=== PATIENT | female | born 1950 | race Caucasian/White ===

== ENCOUNTER 2016-09-26 07:47 | Outpatient (CLI) | payer MEDICARE, OTHER | END 2016-09-26 23:59 | DX: R79.82 Elevated C-reactive protein (CRP) (principal); E78.5 Hyperlipidemia, unspecified; N18.3 Chronic kidney disease, stage 3 (moderate); E66.01 Morbid (severe) obesity due to excess calories; R53.83 Other fatigue; I12.9 Hypertensive chronic kidney disease with stage 1 through stage 4 chronic kidney disease, or unspecified chronic kidney disease ==

== ENCOUNTER 2017-01-16 08:00 | Outpatient (CLI) | payer MEDICARE, OTHER ==
[2017-01-16 18:52] LABS: BILIRUBIN,URINE NEGATIVE (NEGATIVE); PH,URINE 5.5 PH (5.0-7.5)
[2017-01-16 18:54] LABS: UA CHARGE (STRIP ONLY) YES
[2017-01-16 19:03] LABS: BASOPHILS # (AUTO) 0.1 10^3/uL (0.0-0.1); BASOPHILS % (AUTO) 0.8 %; EOSINOPHILS # (AUTO) 0.4 10^3/uL (0.0-0.7); EOSINOPHILS % (AUTO) 4.9 %; HCT - HEMATOCRIT 32.2 % (37.0-47.0); HGB - HEMOGLOBIN 10.2 g/dL (12.0-16.0); LYMPHOCYTES # (AUTO) 2.8 10^3/uL (1.5-3.5); LYMPHOCYTES % (AUTO) 38.4 %; MEAN CORPUSCULAR HEMOGLOBIN 27.1 pg (27.0-31.0); MEAN CORPUSCULAR HGB CONC 31.6 g/dL (32.0-36.0); MEAN CORPUSCULAR VOLUME 85.9 fL (81.0-99.0); MEAN PLATELET VOLUME 10.1 fL (7.9-10.8); MONOCYTES # (AUTO) 0.6 10^3/uL (0.0-1.0); MONOCYTES % (AUTO) 8.9 %; NEUTROPHILS # (AUTO) 3.4 10^3/uL (1.5-6.6); RED BLOOD COUNT 3.75 10^6/uL (4.20-5.40); RED CELL DISTRIBUTION WIDTH 15.1 % (12.0-15.0); UNCORRECTED WHITE BLOOD COUNT 7.2 x10^3/uL; WHITE BLOOD COUNT 7.2 x10^3/uL (4.8-10.8)
[2017-01-16 19:34] LABS: FERRITIN 18.8 ng/mL (11.0-306.8)
[2017-01-16 19:50] LABS: HEMOGLOBIN A1C 0.47 g/dL
[2017-01-16 21:12] LABS: ALBUMIN/GLOBULIN RATIO 0.9 (1.0-2.2); BILIRUBIN,TOTAL 0.3 mg/dL (0.2-1.0); CALCIUM 9.3 mg/dL (8.5-10.3); CREATININE 1.8 mg/dL (0.4-1.0); MAGNESIUM 1.8 mg/dL (1.7-2.8); PHOSPHORUS 3.7 mg/dL (2.5-4.6); POTASSIUM 4.2 mmol/L (3.5-5.0); TOTAL PROTEIN 7.4 g/dL (6.7-8.2); URIC ACID 7.3 mg/dL (2.6-7.2)
[2017-01-20 19:01] LABS: ANA SCREEN POSITIVE (NEGATIVE)
[2017-01-20 20:26] LABS: ALPHA 1 GLOBULIN 0.4 g/dL (0.2-0.3); ALPHA 2 GLOBULIN 0.9 g/dL (0.5-0.9); BETA 1 GLOBULIN 0.6 g/dL (0.4-0.6); BETA 2 GLOBULIN 0.4 g/dL (0.2-0.5); GAMMA GLOBULIN 1.2 g/dL (0.8-1.7)
[2017-01-21 00:01] LABS: TEST RESULT REPORT (())
[2017-01-21 00:28] LABS: TEST RESULT REPORT (())
[2017-01-21 12:41] LABS: ANA TITER 1:40 titer (())
[2017-01-21 19:07] LABS: TEST RESULT REPORT (())
== END 2017-01-16 08:01 | disposition home or self-care (01) ==
LOC: LAB.WCP 08:00
PROVIDERS: ATTEND Specialist
DX: N18.3 Chronic kidney disease, stage 3 (moderate) (principal); E78.2 Mixed hyperlipidemia; R80.9 Proteinuria, unspecified; N17.9 Acute kidney failure, unspecified; N25.0 Renal osteodystrophy; D63.1 Anemia in chronic kidney disease; E11.9 Type 2 diabetes mellitus without complications; E87.5 Hyperkalemia
CPT/HCPCS: 36415; 80053; 81001; 81003; 81599; 82043; 82306; 82570; 82728; 83036; 83540; 83735; 83970; 84100; 84155; 84156; 84165; 84166; 84466; 84550; 85025; 85651; 86021; 86038; 86039; 86140; 86334; 86430

== ENCOUNTER 2017-02-13 11:18 | Outpatient (CLI) | payer MEDICARE, OTHER | END 2017-02-13 11:19 | disposition home or self-care (01) | LOC: DI 11:18 | PROVIDERS: ATTEND Family Medicine | DX: R06.02 Shortness of breath (principal); M13.0 Polyarthritis, unspecified; R79.82 Elevated C-reactive protein (CRP); I11.9 Hypertensive heart disease without heart failure | CPT/HCPCS: 93306 ==

== ENCOUNTER 2017-03-31 13:12 | Outpatient (CLI) | payer MEDICARE, OTHER ==
[2017-03-31] MEDS ORDERED: BARIUM SULFATE 148 GM POWDER PO ONE (15:22)
[2017-03-31] MEDS ORDERED: BARIUM SULFATE 135 ML BOTTLE PO ONE (15:24)
[2017-03-31] MEDS ORDERED: SIMETHICONE/SOD BICARB/CIT AC 1 EACH PACKET PO ONE (15:24)
--- NOTE | 2017-03-31 18:23 | XRAY Report ---
UPPER GI SERIES: 03/31/2017 No comparison. INDICATION: Shortness of breath, polyarthritis, idiopathic hypertension, and dysphagia. TECHNIQUE - FINDINGS: Shooting Gallery Operator view demonstrates cholecystectomy clips. No bowel obstruction. Thick and thin barium were administered orally. Crystal effervescence was used for esophageal and st omach evaluation. No evidence of mass or mucosal abnormality. No strictures or diverticula. Esophageal motility appears normal. No hiatal hernia or gastroesophageal reflux was seen during the exam. IMPRESSION: ESSENTIALLY NEGATIVE UPPER GI. JOB #: [id number] EXT JOB #:[id number]
== END 2017-03-31 13:13 | disposition home or self-care (01) ==
LOC: DI 13:12
PROVIDERS: ATTEND Family Medicine
DX: R13.10 Dysphagia, unspecified (principal); Z90.49 Acquired absence of other specified parts of digestive tract
CPT/HCPCS: 74247; A9270

== ENCOUNTER 2017-05-01 08:00 | Outpatient (CLI) | payer MEDICARE, OTHER ==
[2017-05-01 18:14] LABS: BASOPHILS # (AUTO) 0.1 10^3/uL (0.0-0.1); BASOPHILS % (AUTO) 0.9 %; BILIRUBIN,URINE NEGATIVE (NEGATIVE); EOSINOPHILS # (AUTO) 0.2 10^3/uL (0.0-0.7); EOSINOPHILS % (AUTO) 3.1 %; HCT - HEMATOCRIT 36.8 % (37.0-47.0); HGB - HEMOGLOBIN 11.9 g/dL (12.0-16.0); LYMPHOCYTES # (AUTO) 2.7 10^3/uL (1.5-3.5); LYMPHOCYTES % (AUTO) 39.1 %; MEAN CORPUSCULAR HEMOGLOBIN 29.7 pg (27.0-31.0); MEAN CORPUSCULAR HGB CONC 32.5 g/dL (32.0-36.0); MEAN CORPUSCULAR VOLUME 91.3 fL (81.0-99.0); MEAN PLATELET VOLUME 10.5 fL (7.9-10.8); MONOCYTES # (AUTO) 0.6 10^3/uL (0.0-1.0); MONOCYTES % (AUTO) 8.7 %; NEUTROPHILS # (AUTO) 3.3 10^3/uL (1.5-6.6); NEUTROPHILS % (AUTO) 48.2 %; RED BLOOD COUNT 4.03 10^6/uL (4.20-5.40); RED CELL DISTRIBUTION WIDTH 16.4 % (12.0-15.0); UNCORRECTED WHITE BLOOD COUNT 6.8 x10^3/uL; WHITE BLOOD COUNT 6.8 x10^3/uL (4.8-10.8)
[2017-05-01 18:21] LABS: UA CHARGE (STRIP ONLY) YES; UR CULTURE IF IND NOT INDICATED
[2017-05-01 18:47] LABS: FERRITIN 103.8 ng/mL (11.0-306.8)
[2017-05-01 18:51] LABS: FOLATE 6.66 ng/mL (5.90 - >24.8)
[2017-05-01 18:52] LABS: ALBUMIN/GLOBULIN RATIO 0.9 (1.0-2.2); BILIRUBIN,TOTAL 0.6 mg/dL (0.2-1.0); CALCIUM 9.4 mg/dL (8.5-10.3); CREATININE 1.8 mg/dL (0.4-1.0); PHOSPHORUS 3.2 mg/dL (2.5-4.6); POTASSIUM 4.2 mmol/L (3.5-5.0); TOTAL PROTEIN 7.4 g/dL (6.7-8.2)
== END 2017-05-01 08:01 | disposition home or self-care (01) ==
LOC: LAB.WCP 08:00
PROVIDERS: ATTEND Specialist
DX: N18.3 Chronic kidney disease, stage 3 (moderate) (principal); R30.9 Painful micturition, unspecified; D63.1 Anemia in chronic kidney disease; E78.2 Mixed hyperlipidemia; N25.0 Renal osteodystrophy; R80.9 Proteinuria, unspecified
CPT/HCPCS: 36415; 80053; 81001; 81003; 82043; 82306; 82607; 82728; 82746; 83540; 84100; 84466; 85025; 85651; 87086

== ENCOUNTER 2017-12-01 09:45 | Outpatient (CLI) | payer MEDICARE, OTHER ==
[2017-12-01 12:41] LABS: BASOPHILS % (AUTO) 0.5 %; EOSINOPHILS # (AUTO) 0.4 10^3/uL (0.0-0.7); EOSINOPHILS % (AUTO) 4.4 %; HGB - HEMOGLOBIN 11.2 g/dL (12.0-16.0); LYMPHOCYTES # (AUTO) 3.2 10^3/uL (1.5-3.5); MEAN CORPUSCULAR HGB CONC 32.6 g/dL (32.0-36.0); MEAN CORPUSCULAR VOLUME 92.1 fL (81.0-99.0); MEAN PLATELET VOLUME 10.2 fL (7.9-10.8); MONOCYTES # (AUTO) 0.7 10^3/uL (0.0-1.0); MONOCYTES % (AUTO) 8.9 %; NEUTROPHILS # (AUTO) 3.7 10^3/uL (1.5-6.6); NEUTROPHILS % (AUTO) 46.2 %; PLT - PLATELET COUNT 208 10^3/uL (130-450); RED BLOOD COUNT 3.75 10^6/uL (4.20-5.40); RED CELL DISTRIBUTION WIDTH 13.3 % (12.0-15.0)
[2017-12-01 12:50] LABS: BILIRUBIN,URINE NEGATIVE (NEGATIVE); GLUCOSE, URINE (UA) NEGATIVE (NEGATIVE); KETONES,URINE (UA) NEGATIVE (NEGATIVE); LEUKOCYTE ESTERASE, URINE NEGATIVE (NEGATIVE); NITRITE,URINE NEGATIVE (NEGATIVE); OCCULT BLOOD,URINE NEGATIVE (NEGATIVE); PROTEIN,URINE NEGATIVE (NEGATIVE); UROBILINOGEN,URINE 0.2 (NORMAL) E.U./dL (NORMAL)
[2017-12-01 12:54] LABS: CLARITY,URINE CLEAR (CLEAR)
[2017-12-01 13:04] LABS: BACTERIA,URINE Rare /HPF (None Seen); RBC,URINE None Seen /HPF (0-5); SQUAMOUS EPITHELIAL CELL,UR FEW Squamous (<= Few)
[2017-12-01 13:07] LABS: % IRON SATURATION 17 % (20-50); ALBUMIN 3.2 g/dL (3.2-5.5); ALBUMIN/GLOBULIN RATIO 0.8 (1.0-2.2); ALKALINE PHOSPHATASE 90 IU/L (42-121); ALT ALANINE AMINOTRANSFERASE 18 IU/L (10-60); AST ASPARTATE AMINOTRANSFERASE 23 IU/L (10-42); BILIRUBIN,TOTAL 0.4 mg/dL (0.2-1.0); BUN - BLOOD UREA NITROGEN 40 mg/dL (6-20); CALCIUM 9.5 mg/dL (8.5-10.3); CARBON DIOXIDE - CO2 24 mmol/L (21-32); CHLORIDE 100 mmol/L (101-111); CHOLESTEROL 174 mg/dL; CREATININE 2.3 mg/dL (0.4-1.0); GFR - MDRD 21 (>89); GLUCOSE 134 mg/dL (70-100); HDL CHOLESTEROL 44 mg/dL; IRON 56 ug/dL (28-170); LDL CHOLESTEROL,CALCULATED 97 mg/dL; LDL/HDL RATIO 2.2 (<4.4); MAGNESIUM 1.9 mg/dL (1.7-2.8); PHOSPHORUS 3.1 mg/dL (2.5-4.6); SODIUM 134 mmol/L (135-145); TOTAL IRON BINDING CAPACITY 326 ug/dL (250-450); TOTAL PROTEIN 7.3 g/dL (6.7-8.2); TRANSFERRIN 233 mg/dL (192-382); VLDL CHOLESTEROL 33 mg/dL
[2017-12-01 13:24] LABS: FERRITIN 74.6 ng/mL (11.0-306.8)
[2017-12-01 13:25] LABS: CREATININE,URINE 106.5 mg/dL; MICROALBUMIN,URINE 1.7 mg/dL (0-300.0)
[2017-12-01 13:31] LABS: HEMOGLOBIN A1C 0.51 g/dL
== END 2017-12-01 09:46 | disposition home or self-care (01) ==
LOC: LAB.WCP 09:45
PROVIDERS: ATTEND Specialist
DX: N18.3 Chronic kidney disease, stage 3 (moderate) (principal); R73.9 Hyperglycemia, unspecified; D63.1 Anemia in chronic kidney disease; E78.2 Mixed hyperlipidemia; N25.0 Renal osteodystrophy; E55.9 Vitamin D deficiency, unspecified
CPT/HCPCS: 36415; 80053; 80061; 81001; 82043; 82306; 82570; 82728; 83036; 83540; 83721; 83735; 83970; 84100; 84466; 85025; 87086

== ENCOUNTER 2018-01-12 08:12 | Outpatient (CLI) | payer MEDICARE, OTHER ==
--- NOTE | 2018-01-12 14:50 | Ultrasound Report ---
Procedure Date: 01/12/2018 Accession Number: [id number] / [id number] Procedure: US - Retroperitoneal CPT Code: FULL RESULT: EXAM: Retroperitoneal DATE: 01/12/2018 10:24 AM CLINICAL HISTORY: CKD, HYPERTENSIVE CKD COMPARISON: Renal ultrasound 02/25/2010. TECHNIQUE: Real-time scanning was performed with static images obtained. FINDINGS: The study is limited by the patient's body habitus and limited acoustic windows. Right Kidney: 9.8 cm. Parenchymal blood flow is preserved by color Doppler. No hydronephrosis or obvious masses detected. Left Kidney: 11.7 cm. The parenchymal flow is preserved by color Doppler.. No hydronephrosis or obvious masses detected. Bladder: Bilateral jets seen. The prevoid bladder volume was 137 cc. The postvoid bladder volume was 35 cc. IMPRESSION: Limited study with no hydronephrosis. RADIA
--- NOTE | 2018-01-13 09:51 | Ultrasound Report ---
Procedure Date: 01/12/2018 Accession Number: [id number] / [id number] Procedure: US - Arterial Visceral Complete CPT Code: FULL RESULT: EXAM: RENAL ARTERY DOPPLER ULTRASOUND EXAM DATE: 01/12/2018 10:22 AM. CLINICAL HISTORY: Chronic kidney disease. Hypertension. COMPARISON: None. TECHNIQUE: Real-time sonographic vascular imaging was performed by the customer care associate through the renal arterial system with a linear transducer utilizing color-flow, Doppler flow, and spectral analysis. Multiple ambulatory services representative static images were saved for review. FINDINGS: Examination is technically limited by patient body habitus. The right renal artery origin and proximal portion could not be visualized. The kidneys are normal in size and echotexture. There is no hydronephrosis. No stones or contour-deforming masses are identified. Overall, there is slight elevation of the resistive indices in the segmental arteries which may represent changes related to chronic medical renal disease. There is no significant elevation of the peak systolic velocities or ratios in the visualized renal arteries to suggest hemodynamically significant stenosis. The renal veins are patent. Right Kidney: 9.8 x 4.6 x 4.4 cm. Echotexture: Within normal limits. Right Segmental Artery: Upper pole: PSV 14.4 cm/sec, RI 0.69. Mid pole: PSV 18.8 cm/sec, RI 0.85. Lower pole: PSV 10.6 cm/sec, RI 0.76. Right Renal Artery: Mid: PSV 92.5 cm/sec, RA/AO 1.14. Distal: PSV 159.5 cm/sec, RA/AO 1.97. Aorta PSV: 81.1 cm/sec. RRV Patent: Yes. Left Kidney: 11.7 x 6.0 x 4.5 cm. Echotexture: Within normal limits. Left Segmental Artery: Upper pole: PSV 14.2 cm/sec, RI 0.73. Mid pole: PSV 15.3 cm/sec, RI 0.80. Lower pole: PSV 22.5 cm/sec, RI 0.80. Left Renal Artery: Origin: PSV 110.3 cm/sec, RA/AO 1.36. Proximal: PSV 129.8 cm/sec, RA/AO 1.60. Mid: PSV 115.7 cm/sec, RA/AO 1.42. Distal: PSV 129.8 cm/sec, RA/AO 1.60. LRV Patent: Yes. IMPRESSION: 1. Normal size kidneys with no hydronephrosis. Elevated resistive indices in the segmental arteries could represent changes related to chronic medical renal disease. 2. No renal artery stenosis is identified. Of note, the origin and proximal portion of the right renal artery is obscured by overlying bowel gas and could not be evaluated. CRITERIA FOR CLASSIFICATION OF RENAL ARTERY (RA) DISEASE BY DUPLEX SCANNING: RA Diameter Reduction/ RA PSV/ RAR: Normal, < 180 cm/sec, < 3.5 < 60%, >= 180 cm/sec, < 3.5 >= 60%, >= 180 cm/sec, >= 3.5 Total Occlusion: Undetectable; Not applicable RADIA
== END 2018-01-12 08:13 | disposition home or self-care (01) ==
LOC: DI 08:12
PROVIDERS: ATTEND Specialist
DX: I12.9 Hypertensive chronic kidney disease with stage 1 through stage 4 chronic kidney disease, or unspecified chronic kidney disease (principal)
CPT/HCPCS: 76770; 93975

== ENCOUNTER 2018-02-09 11:17 | Outpatient (CLI) | payer MEDICARE, OTHER ==
[2018-02-09 19:04] LABS: BASOPHILS % (AUTO) 0.3 %; EOSINOPHILS # (AUTO) 0.3 10^3/uL (0.0-0.7); EOSINOPHILS % (AUTO) 3.9 %; HGB - HEMOGLOBIN 11.6 g/dL (12.0-16.0); LYMPHOCYTES # (AUTO) 3.4 10^3/uL (1.5-3.5); LYMPHOCYTES % (AUTO) 43.9 %; MEAN CORPUSCULAR HEMOGLOBIN 29.9 pg (27.0-31.0); MEAN CORPUSCULAR HGB CONC 32.8 g/dL (32.0-36.0); MEAN CORPUSCULAR VOLUME 91.3 fL (81.0-99.0); MEAN PLATELET VOLUME 10.3 fL (7.9-10.8); MONOCYTES # (AUTO) 0.7 10^3/uL (0.0-1.0); MONOCYTES % (AUTO) 8.5 %; NEUTROPHILS # (AUTO) 3.4 10^3/uL (1.5-6.6); NEUTROPHILS % (AUTO) 43.4 %; PLT - PLATELET COUNT 194 10^3/uL (130-450); RED BLOOD COUNT 3.86 10^6/uL (4.20-5.40); RED CELL DISTRIBUTION WIDTH 14.4 % (12.0-15.0); WHITE BLOOD COUNT 7.9 x10^3/uL (4.8-10.8)
[2018-02-09 19:26] LABS: ALBUMIN 3.5 g/dL (3.2-5.5); ALBUMIN/GLOBULIN RATIO 0.9 (1.0-2.2); BILIRUBIN,TOTAL 0.3 mg/dL (0.2-1.0); CALCIUM 9.6 mg/dL (8.5-10.3); CREATININE 2.2 mg/dL (0.4-1.0); TOTAL PROTEIN 7.4 g/dL (6.7-8.2)
== END 2018-02-09 11:18 | disposition home or self-care (01) ==
LOC: LAB.WCP 11:17
PROVIDERS: ATTEND Specialist
DX: N18.4 Chronic kidney disease, stage 4 (severe) (principal); N25.0 Renal osteodystrophy; D63.1 Anemia in chronic kidney disease; E78.2 Mixed hyperlipidemia
CPT/HCPCS: 36415; 80053; 85025

== ENCOUNTER 2018-04-07 11:30 | Outpatient (CLI) | payer MEDICARE, OTHER ==
[2018-04-07 19:16] LABS: BILIRUBIN,URINE NEGATIVE (NEGATIVE); GLUCOSE, URINE (UA) NEGATIVE (NEGATIVE); KETONES,URINE (UA) NEGATIVE (NEGATIVE); LEUKOCYTE ESTERASE, URINE NEGATIVE (NEGATIVE); NITRITE,URINE NEGATIVE (NEGATIVE); OCCULT BLOOD,URINE NEGATIVE (NEGATIVE); PROTEIN,URINE NEGATIVE (NEGATIVE); UROBILINOGEN,URINE 0.2 (NORMAL) E.U./dL (NORMAL)
[2018-04-07 19:17] LABS: CLARITY,URINE CLEAR (CLEAR)
[2018-04-07 19:18] LABS: BASOPHILS # (AUTO) 0.1 10^3/uL (0.0-0.1); BASOPHILS % (AUTO) 0.8 %; EOSINOPHILS # (AUTO) 0.3 10^3/uL (0.0-0.7); EOSINOPHILS % (AUTO) 3.9 %; LYMPHOCYTES # (AUTO) 2.9 10^3/uL (1.5-3.5); LYMPHOCYTES % (AUTO) 39.3 %; MEAN CORPUSCULAR HEMOGLOBIN 29.8 pg (27.0-31.0); MEAN CORPUSCULAR HGB CONC 32.4 g/dL (32.0-36.0); MEAN CORPUSCULAR VOLUME 91.9 fL (81.0-99.0); MEAN PLATELET VOLUME 10.4 fL (7.9-10.8); MONOCYTES # (AUTO) 0.6 10^3/uL (0.0-1.0); MONOCYTES % (AUTO) 7.5 %; NEUTROPHILS # (AUTO) 3.6 10^3/uL (1.5-6.6); NEUTROPHILS % (AUTO) 48.5 %; PLT - PLATELET COUNT 196 10^3/uL (130-450); RED BLOOD COUNT 3.69 10^6/uL (4.20-5.40); RED CELL DISTRIBUTION WIDTH 14.3 % (12.0-15.0); WHITE BLOOD COUNT 7.4 x10^3/uL (4.8-10.8)
[2018-04-07 19:28] LABS: ALBUMIN 3.4 g/dL (3.2-5.5); ALBUMIN/GLOBULIN RATIO 0.9 (1.0-2.2); BILIRUBIN,TOTAL 0.5 mg/dL (0.2-1.0); CALCIUM 9.3 mg/dL (8.5-10.3); CREATININE 2.1 mg/dL (0.4-1.0); TOTAL PROTEIN 7.1 g/dL (6.7-8.2)
[2018-04-07 19:36] LABS: CREATININE,URINE 54.4 mg/dL
== END 2018-04-07 23:59 | disposition home or self-care (01) ==
LOC: LAB.WCP 11:30
PROVIDERS: ATTEND Specialist
DX: N18.4 Chronic kidney disease, stage 4 (severe) (principal); D63.1 Anemia in chronic kidney disease; E78.2 Mixed hyperlipidemia; I12.9 Hypertensive chronic kidney disease with stage 1 through stage 4 chronic kidney disease, or unspecified chronic kidney disease; N25.0 Renal osteodystrophy
CPT/HCPCS: 36415; 80053; 81001; 81003; 82306; 82570; 83970; 84156; 85025

== ENCOUNTER 2018-06-22 08:00 | Outpatient (CLI) | payer MEDICARE, OTHER ==
[2018-06-22 13:53] LABS: BASOPHILS % (AUTO) 0.4 %; EOSINOPHILS # (AUTO) 0.6 10^3/uL (0.0-0.7); EOSINOPHILS % (AUTO) 6.3 %; HGB - HEMOGLOBIN 10.8 g/dL (12.0-16.0); LYMPHOCYTES # (AUTO) 3.6 10^3/uL (1.5-3.5); LYMPHOCYTES % (AUTO) 39.7 %; MEAN CORPUSCULAR HEMOGLOBIN 29.9 pg (27.0-31.0); MEAN CORPUSCULAR HGB CONC 32.9 g/dL (32.0-36.0); MEAN CORPUSCULAR VOLUME 90.9 fL (81.0-99.0); MEAN PLATELET VOLUME 10.2 fL (7.9-10.8); MONOCYTES # (AUTO) 0.7 10^3/uL (0.0-1.0); MONOCYTES % (AUTO) 8.3 %; NEUTROPHILS # (AUTO) 4.1 10^3/uL (1.5-6.6); NEUTROPHILS % (AUTO) 45.3 %; PLT - PLATELET COUNT 215 10^3/uL (130-450); RED BLOOD COUNT 3.62 10^6/uL (4.20-5.40); RED CELL DISTRIBUTION WIDTH 13.5 % (12.0-15.0)
[2018-06-22 13:59] LABS: ALBUMIN 3.3 g/dL (3.2-5.5); ALBUMIN/GLOBULIN RATIO 0.8 (1.0-2.2); BILIRUBIN,TOTAL 0.3 mg/dL (0.2-1.0); CALCIUM 9.6 mg/dL (8.5-10.3); CREATININE 2.4 mg/dL (0.4-1.0); TOTAL PROTEIN 7.2 g/dL (6.7-8.2)
== END 2018-06-22 23:59 | disposition home or self-care (01) ==
LOC: LAB.WCP 08:00
PROVIDERS: ATTEND Specialist
DX: N18.4 Chronic kidney disease, stage 4 (severe) (principal); N25.0 Renal osteodystrophy; D63.1 Anemia in chronic kidney disease; E78.2 Mixed hyperlipidemia
CPT/HCPCS: 36415; 80053; 85025

== ENCOUNTER 2018-08-20 08:00 | Outpatient (CLI) | payer MEDICARE, OTHER ==
[2018-08-20 19:34] LABS: BILIRUBIN,URINE NEGATIVE (NEGATIVE); GLUCOSE, URINE (UA) NEGATIVE (NEGATIVE); KETONES,URINE (UA) NEGATIVE (NEGATIVE); LEUKOCYTE ESTERASE, URINE NEGATIVE (NEGATIVE); NITRITE,URINE NEGATIVE (NEGATIVE); OCCULT BLOOD,URINE NEGATIVE (NEGATIVE); PROTEIN,URINE NEGATIVE (NEGATIVE); UROBILINOGEN,URINE 0.2 (NORMAL) E.U./dL (NORMAL)
[2018-08-20 19:36] LABS: CLARITY,URINE CLEAR (CLEAR)
[2018-08-20 19:49] LABS: BASOPHILS # (AUTO) 0.1 10^3/uL (0.0-0.1); BASOPHILS % (AUTO) 0.6 %; EOSINOPHILS # (AUTO) 0.3 10^3/uL (0.0-0.7); HGB - HEMOGLOBIN 10.5 g/dL (12.0-16.0); LYMPHOCYTES % (AUTO) 32.9 %; MEAN CORPUSCULAR HEMOGLOBIN 29.2 pg (27.0-31.0); MEAN CORPUSCULAR HGB CONC 31.7 g/dL (32.0-36.0); MEAN PLATELET VOLUME 10.5 fL (7.9-10.8); MONOCYTES # (AUTO) 0.7 10^3/uL (0.0-1.0); MONOCYTES % (AUTO) 7.2 %; NEUTROPHILS # (AUTO) 5.2 10^3/uL (1.5-6.6); NEUTROPHILS % (AUTO) 56.3 %; PLT - PLATELET COUNT 202 10^3/uL (130-450); RED BLOOD COUNT 3.61 10^6/uL (4.20-5.40); RED CELL DISTRIBUTION WIDTH 13.7 % (12.0-15.0); WHITE BLOOD COUNT 9.2 x10^3/uL (4.8-10.8)
[2018-08-20 20:00] LABS: HB2 TOTAL 11.5 g/dL; HEMOGLOBIN A1C 0.53 g/dL; HEMOGLOBIN A1C % 6.4 % (4.6-6.2)
[2018-08-20 20:14] LABS: CREATININE,URINE 116.6 mg/dL; MICROALBUMIN,URINE 2.7 mg/dL (0-300.0); PROTEIN/CREATININE RATIO,URINE 0.2 (<=0.2)
[2018-08-20 20:38] LABS: FERRITIN 72.3 ng/mL (11.0-306.8)
[2018-08-20 20:47] LABS: % IRON SATURATION 10 % (20-50); ALBUMIN 3.5 g/dL (3.2-5.5); ALBUMIN/GLOBULIN RATIO 0.9 (1.0-2.2); ALKALINE PHOSPHATASE 93 IU/L (42-121); ALT ALANINE AMINOTRANSFERASE 15 IU/L (10-60); AST ASPARTATE AMINOTRANSFERASE 20 IU/L (10-42); BILIRUBIN,TOTAL 0.5 mg/dL (0.2-1.0); BUN - BLOOD UREA NITROGEN 49 mg/dL (6-20); CALCIUM 9.7 mg/dL (8.5-10.3); CARBON DIOXIDE - CO2 23 mmol/L (21-32); CHLORIDE 104 mmol/L (101-111); CHOL/HDL RATIO 3.8 (<4.4); CHOLESTEROL 199 mg/dL; CREATININE 2.5 mg/dL (0.4-1.0); GFR - MDRD 19 (>89); GLUCOSE 115 mg/dL (70-100); HDL CHOLESTEROL 52 mg/dL; IRON 36 ug/dL (28-170); LDL CHOLESTEROL,CALCULATED 114 mg/dL; LDL/HDL RATIO 2.2 (<4.4); SODIUM 136 mmol/L (135-145); TOTAL IRON BINDING CAPACITY 358 ug/dL (250-450); TOTAL PROTEIN 7.2 g/dL (6.7-8.2); TRANSFERRIN 256 mg/dL (192-382); VLDL CHOLESTEROL 33 mg/dL
== END 2018-08-20 23:59 ==
LOC: LAB.WCP 08:00
PROVIDERS: ATTEND Specialist
DX: I12.9 Hypertensive chronic kidney disease with stage 1 through stage 4 chronic kidney disease, or unspecified chronic kidney disease (principal); N18.4 Chronic kidney disease, stage 4 (severe); E11.22 Type 2 diabetes mellitus with diabetic chronic kidney disease; E11.65 Type 2 diabetes mellitus with hyperglycemia; D63.1 Anemia in chronic kidney disease; E78.2 Mixed hyperlipidemia; R80.9 Proteinuria, unspecified; E55.9 Vitamin D deficiency, unspecified
CPT/HCPCS: 36415; 80053; 80061; 81001; 81003; 82043; 82570; 82728; 83036; 83540; 83721; 83970; 84100; 84156; 84466; 85025; 87086

== ENCOUNTER 2018-10-19 10:47 | Outpatient (CLI) | payer MEDICARE, OTHER ==
[2018-10-19 18:50] LABS: BASOPHILS % (AUTO) 0.6 %; EOSINOPHILS # (AUTO) 0.2 10^3/uL (0.0-0.7); HGB - HEMOGLOBIN 10.5 g/dL (12.0-16.0); LYMPHOCYTES # (AUTO) 2.9 10^3/uL (1.5-3.5); LYMPHOCYTES % (AUTO) 38.3 %; MEAN CORPUSCULAR HEMOGLOBIN 29.4 pg (27.0-31.0); MEAN CORPUSCULAR VOLUME 91.7 fL (81.0-99.0); MEAN PLATELET VOLUME 9.9 fL (7.9-10.8); MONOCYTES # (AUTO) 0.6 10^3/uL (0.0-1.0); MONOCYTES % (AUTO) 7.5 %; NEUTROPHILS # (AUTO) 3.8 10^3/uL (1.5-6.6); NEUTROPHILS % (AUTO) 50.6 %; PLT - PLATELET COUNT 220 10^3/uL (130-450); RED BLOOD COUNT 3.59 10^6/uL (4.20-5.40); RED CELL DISTRIBUTION WIDTH 14.3 % (12.0-15.0); WHITE BLOOD COUNT 7.5 x10^3/uL (4.8-10.8)
[2018-10-19 18:58] LABS: BILIRUBIN,URINE NEGATIVE (NEGATIVE); GLUCOSE, URINE (UA) NEGATIVE (NEGATIVE); KETONES,URINE (UA) NEGATIVE (NEGATIVE); LEUKOCYTE ESTERASE, URINE NEGATIVE (NEGATIVE); NITRITE,URINE NEGATIVE (NEGATIVE); OCCULT BLOOD,URINE NEGATIVE (NEGATIVE); PH,URINE 5.5 PH (5.0-7.5); PROTEIN,URINE NEGATIVE (NEGATIVE); UROBILINOGEN,URINE 0.2 (NORMAL) E.U./dL (NORMAL)
[2018-10-19 19:02] LABS: CLARITY,URINE CLEAR (CLEAR)
[2018-10-19 19:12] LABS: HEMOGLOBIN A1C 0.46 g/dL
[2018-10-19 19:23] LABS: BACTERIA,URINE Few /HPF (None Seen); MUCUS,URINE Few Strands; RBC,URINE None Seen /HPF (0-5); SQUAMOUS EPITHELIAL CELL,UR MANY Squamous (<= Few)
[2018-10-19 19:38] LABS: % IRON SATURATION 18 % (20-50); ALBUMIN 3.6 g/dL (3.2-5.5); ALBUMIN/GLOBULIN RATIO 1.1 (1.0-2.2); ALKALINE PHOSPHATASE 82 IU/L (42-121); ALT ALANINE AMINOTRANSFERASE 18 IU/L (10-60); AST ASPARTATE AMINOTRANSFERASE 21 IU/L (10-42); BILIRUBIN,TOTAL 0.4 mg/dL (0.2-1.0); BUN - BLOOD UREA NITROGEN 40 mg/dL (6-20); CALCIUM 9.5 mg/dL (8.5-10.3); CARBON DIOXIDE - CO2 22 mmol/L (21-32); CHLORIDE 108 mmol/L (101-111); CHOL/HDL RATIO 4.6 (<4.4); CHOLESTEROL 206 mg/dL; CREATININE 2.4 mg/dL (0.4-1.0); CREATININE,URINE 111.3 mg/dL; GFR - MDRD 20 (>89); GLUCOSE 108 mg/dL (70-100); HDL CHOLESTEROL 45 mg/dL; IRON 55 ug/dL (28-170); LDL CHOLESTEROL,CALCULATED 128 mg/dL; LDL/HDL RATIO 2.8 (<4.4); PHOSPHORUS 4.1 mg/dL (2.5-4.6); SODIUM 139 mmol/L (135-145); TOTAL IRON BINDING CAPACITY 309 ug/dL (250-450); TRANSFERRIN 221 mg/dL (192-382); VLDL CHOLESTEROL 33 mg/dL
== END 2018-10-19 10:48 | disposition home or self-care (01) ==
LOC: LAB.WCP 10:47
PROVIDERS: ATTEND Specialist
DX: E11.22 Type 2 diabetes mellitus with diabetic chronic kidney disease (principal); I12.9 Hypertensive chronic kidney disease with stage 1 through stage 4 chronic kidney disease, or unspecified chronic kidney disease; N18.4 Chronic kidney disease, stage 4 (severe); D63.1 Anemia in chronic kidney disease; R80.9 Proteinuria, unspecified; E11.65 Type 2 diabetes mellitus with hyperglycemia; E78.2 Mixed hyperlipidemia; N25.0 Renal osteodystrophy; E55.9 Vitamin D deficiency, unspecified
CPT/HCPCS: 36415; 80053; 80061; 81001; 82043; 82306; 82570; 82728; 83036; 83540; 83721; 83970; 84100; 84466; 85025; 87086

== ENCOUNTER 2019-01-11 08:00 | Outpatient (CLI) | payer MEDICARE, OTHER ==
[2019-01-11 19:17] LABS: BASOPHILS % (AUTO) 0.5 %; EOSINOPHILS # (AUTO) 0.3 10^3/uL (0.0-0.7); EOSINOPHILS % (AUTO) 3.2 %; HGB - HEMOGLOBIN 10.5 g/dL (12.0-16.0); LYMPHOCYTES # (AUTO) 3.2 10^3/uL (1.5-3.5); LYMPHOCYTES % (AUTO) 36.7 %; MEAN CORPUSCULAR HEMOGLOBIN 29.5 pg (27.0-31.0); MEAN CORPUSCULAR HGB CONC 30.3 g/dL (32.0-36.0); MEAN CORPUSCULAR VOLUME 97.2 fL (81.0-99.0); MEAN PLATELET VOLUME 12.2 fL (7.9-10.8); MONOCYTES # (AUTO) 0.7 10^3/uL (0.0-1.0); MONOCYTES % (AUTO) 7.8 %; NEUTROPHILS # (AUTO) 4.5 10^3/uL (1.5-6.6); NEUTROPHILS % (AUTO) 51.5 %; PLT - PLATELET COUNT 250 10^3/uL (130-450); RED BLOOD COUNT 3.56 10^6/uL (4.20-5.40); RED CELL DISTRIBUTION WIDTH 13.6 % (12.0-15.0); WHITE BLOOD COUNT 8.7 x10^3/uL (4.8-10.8)
[2019-01-11 19:36] LABS: ALBUMIN 3.7 g/dL (3.2-5.5); ALBUMIN/GLOBULIN RATIO 0.9 (1.0-2.2); BILIRUBIN,TOTAL 0.4 mg/dL (0.2-1.0); CREATININE 2.5 mg/dL (0.4-1.0); PHOSPHORUS 4.5 mg/dL (2.5-4.6); TOTAL PROTEIN 7.7 g/dL (6.7-8.2)
[2019-01-11 19:47] LABS: FERRITIN 37.9 ng/mL (11.0-306.8)
== END 2019-01-11 23:59 | disposition home or self-care (01) ==
LOC: LAB.WCP 08:00
PROVIDERS: ATTEND Internal Medicine
DX: N18.4 Chronic kidney disease, stage 4 (severe) (principal)
CPT/HCPCS: 36415; 80053; 82728; 83540; 83970; 84100; 84466; 85025

== ENCOUNTER 2019-07-27 10:07 | Outpatient (CLI) | payer MEDICARE, OTHER ==
[2019-07-27 12:21] LABS: BASOPHILS % (AUTO) 0.5 %; EOSINOPHILS # (AUTO) 0.3 10^3/uL (0.0-0.7); EOSINOPHILS % (AUTO) 4.2 %; HGB - HEMOGLOBIN 10.1 g/dL (12.0-16.0); LYMPHOCYTES # (AUTO) 3.6 10^3/uL (1.5-3.5); LYMPHOCYTES % (AUTO) 45.9 %; MEAN CORPUSCULAR HEMOGLOBIN 28.4 pg (27.0-31.0); MEAN CORPUSCULAR HGB CONC 29.3 g/dL (32.0-36.0); MEAN CORPUSCULAR VOLUME 96.9 fL (81.0-99.0); MEAN PLATELET VOLUME 12.1 fL (7.9-10.8); MONOCYTES # (AUTO) 0.6 10^3/uL (0.0-1.0); MONOCYTES % (AUTO) 7.5 %; NEUTROPHILS # (AUTO) 3.3 10^3/uL (1.5-6.6); NEUTROPHILS % (AUTO) 41.5 %; PLT - PLATELET COUNT 240 10^3/uL (130-450); RED BLOOD COUNT 3.56 10^6/uL (4.20-5.40); RED CELL DISTRIBUTION WIDTH 13.4 % (12.0-15.0); WHITE BLOOD COUNT 7.9 x10^3/uL (4.8-10.8)
[2019-07-27 12:43] LABS: CALCIUM 9.6 mg/dL (8.5-10.3); CREATININE 2.9 mg/dL (0.4-1.0)
== END 2019-07-27 23:59 | disposition home or self-care (01) ==
LOC: LAB.WCP 10:07
PROVIDERS: ATTEND Internal Medicine
DX: N18.4 Chronic kidney disease, stage 4 (severe) (principal)
CPT/HCPCS: 36415; 80048; 85025

== ENCOUNTER 2019-09-23 11:16 | Outpatient (CLI) | payer MEDICARE, OTHER ==
[2019-09-23 17:12] LABS: BASOPHILS % (AUTO) 0.5 %; EOSINOPHILS # (AUTO) 0.3 10^3/uL (0.0-0.7); EOSINOPHILS % (AUTO) 3.7 %; HGB - HEMOGLOBIN 10.5 g/dL (12.0-16.0); LYMPHOCYTES # (AUTO) 3.1 10^3/uL (1.5-3.5); MEAN CORPUSCULAR HEMOGLOBIN 28.3 pg (27.0-31.0); MEAN CORPUSCULAR HGB CONC 29.3 g/dL (32.0-36.0); MEAN CORPUSCULAR VOLUME 96.5 fL (81.0-99.0); MONOCYTES # (AUTO) 0.7 10^3/uL (0.0-1.0); NEUTROPHILS # (AUTO) 3.9 10^3/uL (1.5-6.6); NEUTROPHILS % (AUTO) 48.3 %; PLT - PLATELET COUNT 235 10^3/uL (130-450); RED BLOOD COUNT 3.71 10^6/uL (4.20-5.40); RED CELL DISTRIBUTION WIDTH 13.6 % (12.0-15.0); WHITE BLOOD COUNT 8.1 x10^3/uL (4.8-10.8)
[2019-09-23 17:48] LABS: ALBUMIN 3.6 g/dL (3.2-5.5); ALBUMIN/GLOBULIN RATIO 0.9 (1.0-2.2); BILIRUBIN,TOTAL 0.3 mg/dL (0.2-1.0); CALCIUM 9.8 mg/dL (8.5-10.3); CREATININE 3.1 mg/dL (0.4-1.0); PHOSPHORUS 4.1 mg/dL (2.5-4.6); TOTAL PROTEIN 7.5 g/dL (6.7-8.2)
== END 2019-09-23 23:59 | disposition home or self-care (01) ==
LOC: LAB.WCP 11:16
PROVIDERS: ATTEND Internal Medicine
DX: N18.4 Chronic kidney disease, stage 4 (severe) (principal)
CPT/HCPCS: 36415; 80053; 82306; 82728; 83540; 83970; 84100; 84466; 85025

== ENCOUNTER 2019-10-26 08:00 | Outpatient (CLI) | payer MEDICARE, OTHER ==
[2019-10-26 14:07] LABS: CALCIUM 9.7 mg/dL (8.5-10.3); CREATININE 2.9 mg/dL (0.4-1.0)
== END 2019-10-26 23:59 | disposition home or self-care (01) ==
LOC: LAB.WCP 08:00
PROVIDERS: ATTEND Internal Medicine
DX: N18.4 Chronic kidney disease, stage 4 (severe) (principal)
CPT/HCPCS: 36415; 80048

== ENCOUNTER 2019-12-12 11:51 | Outpatient (CLI) | payer MEDICARE, OTHER ==
[2019-12-12 17:53] LABS: BASOPHILS # (AUTO) 0.1 10^3/uL (0.0-0.1); BASOPHILS % (AUTO) 0.6 %; EOSINOPHILS # (AUTO) 0.3 10^3/uL (0.0-0.7); EOSINOPHILS % (AUTO) 3.3 %; HGB - HEMOGLOBIN 10.5 g/dL (12.0-16.0); LYMPHOCYTES # (AUTO) 3.6 10^3/uL (1.5-3.5); LYMPHOCYTES % (AUTO) 42.5 %; MEAN CORPUSCULAR HEMOGLOBIN 29.2 pg (27.0-31.0); MEAN CORPUSCULAR HGB CONC 30.3 g/dL (32.0-36.0); MEAN CORPUSCULAR VOLUME 96.7 fL (81.0-99.0); MEAN PLATELET VOLUME 12.4 fL (7.9-10.8); MONOCYTES # (AUTO) 0.6 10^3/uL (0.0-1.0); MONOCYTES % (AUTO) 7.5 %; NEUTROPHILS # (AUTO) 3.9 10^3/uL (1.5-6.6); NEUTROPHILS % (AUTO) 45.9 %; PLT - PLATELET COUNT 239 10^3/uL (130-450); RED BLOOD COUNT 3.59 10^6/uL (4.20-5.40); RED CELL DISTRIBUTION WIDTH 13.1 % (12.0-15.0); WHITE BLOOD COUNT 8.6 x10^3/uL (4.8-10.8)
[2019-12-12 18:08] LABS: ALBUMIN 3.6 g/dL (3.2-5.5); CALCIUM 9.6 mg/dL (8.5-10.3); PHOSPHORUS 4.2 mg/dL (2.5-4.6)
== END 2019-12-12 23:59 | disposition home or self-care (01) ==
LOC: LAB.WCP 11:51
PROVIDERS: ATTEND Internal Medicine
DX: N18.4 Chronic kidney disease, stage 4 (severe) (principal)
CPT/HCPCS: 36415; 80069; 85025

== ENCOUNTER → 2020-01-12 | Outpatient (CLI) | payer MEDICARE, OTHER ==
[2020-01-12 18:44] LABS: BASOPHILS % (AUTO) 0.5 %; EOSINOPHILS # (AUTO) 0.2 10^3/uL (0.0-0.7); EOSINOPHILS % (AUTO) 2.5 %; HGB - HEMOGLOBIN 10.6 g/dL (12.0-16.0); LYMPHOCYTES # (AUTO) 3.8 10^3/uL (1.5-3.5); LYMPHOCYTES % (AUTO) 43.6 %; MEAN CORPUSCULAR HEMOGLOBIN 29.1 pg (27.0-31.0); MEAN CORPUSCULAR HGB CONC 29.5 g/dL (32.0-36.0); MEAN CORPUSCULAR VOLUME 98.6 fL (81.0-99.0); MEAN PLATELET VOLUME 12.1 fL (7.9-10.8); MONOCYTES # (AUTO) 0.7 10^3/uL (0.0-1.0); MONOCYTES % (AUTO) 7.7 %; NEUTROPHILS % (AUTO) 45.5 %; PLT - PLATELET COUNT 225 10^3/uL (130-450); RED BLOOD COUNT 3.64 10^6/uL (4.20-5.40); RED CELL DISTRIBUTION WIDTH 13.4 % (12.0-15.0); WHITE BLOOD COUNT 8.7 x10^3/uL (4.8-10.8)
[2020-01-12 19:14] LABS: ALBUMIN 3.7 g/dL (3.2-5.5); CALCIUM 9.6 mg/dL (8.5-10.3); PHOSPHORUS 4.5 mg/dL (2.5-4.6)
== END ==
LOC: LAB.WCP 08:00
PROVIDERS: ATTEND Internal Medicine
DX: N18.4 Chronic kidney disease, stage 4 (severe) (principal)
CPT/HCPCS: 36415; 80069; 85025

== ENCOUNTER → 2020-02-14 | Outpatient (CLI) | payer MEDICARE, OTHER ==
[2020-02-14 18:08] LABS: BASOPHILS # (AUTO) 0.1 10^3/uL (0.0-0.1); BASOPHILS % (AUTO) 0.7 %; EOSINOPHILS # (AUTO) 0.2 10^3/uL (0.0-0.7); EOSINOPHILS % (AUTO) 2.1 %; HGB - HEMOGLOBIN 9.9 g/dL (12.0-16.0); LYMPHOCYTES # (AUTO) 3.6 10^3/uL (1.5-3.5); LYMPHOCYTES % (AUTO) 43.9 %; MEAN CORPUSCULAR HEMOGLOBIN 29.9 pg (27.0-31.0); MEAN CORPUSCULAR HGB CONC 30.9 g/dL (32.0-36.0); MEAN CORPUSCULAR VOLUME 96.7 fL (81.0-99.0); MONOCYTES # (AUTO) 0.6 10^3/uL (0.0-1.0); MONOCYTES % (AUTO) 6.9 %; NEUTROPHILS # (AUTO) 3.8 10^3/uL (1.5-6.6); NEUTROPHILS % (AUTO) 46.2 %; PLT - PLATELET COUNT 241 10^3/uL (130-450); RED BLOOD COUNT 3.31 10^6/uL (4.20-5.40); RED CELL DISTRIBUTION WIDTH 13.2 % (12.0-15.0); WHITE BLOOD COUNT 8.2 x10^3/uL (4.8-10.8)
[2020-02-14 18:33] LABS: ALBUMIN 3.6 g/dL (3.2-5.5); CALCIUM 10.1 mg/dL (8.5-10.3); CREATININE 3.2 mg/dL (0.4-1.0)
== END ==
LOC: LAB.WCP 14:12
PROVIDERS: ATTEND Internal Medicine
DX: N18.4 Chronic kidney disease, stage 4 (severe) (principal)
CPT/HCPCS: 36415; 80069; 85025

== ENCOUNTER → 2020-03-14 | Outpatient (CLI) | payer MEDICARE, OTHER ==
[2020-03-14 18:29] LABS: BASOPHILS # (AUTO) 0.1 10^3/uL (0.0-0.1); BASOPHILS % (AUTO) 0.5 %; EOSINOPHILS # (AUTO) 0.4 10^3/uL (0.0-0.7); HGB - HEMOGLOBIN 10.3 g/dL (12.0-16.0); LYMPHOCYTES # (AUTO) 3.3 10^3/uL (1.5-3.5); MEAN CORPUSCULAR HEMOGLOBIN 29.8 pg (27.0-31.0); MEAN CORPUSCULAR HGB CONC 30.4 g/dL (32.0-36.0); MEAN PLATELET VOLUME 12.2 fL (7.9-10.8); MONOCYTES # (AUTO) 0.7 10^3/uL (0.0-1.0); MONOCYTES % (AUTO) 7.6 %; NEUTROPHILS # (AUTO) 4.9 10^3/uL (1.5-6.6); NEUTROPHILS % (AUTO) 52.5 %; PLT - PLATELET COUNT 232 10^3/uL (130-450); RED BLOOD COUNT 3.46 10^6/uL (4.20-5.40); RED CELL DISTRIBUTION WIDTH 13.3 % (12.0-15.0); WHITE BLOOD COUNT 9.4 x10^3/uL (4.8-10.8)
[2020-03-14 18:47] LABS: ALBUMIN 3.6 g/dL (3.2-5.5); CALCIUM 9.5 mg/dL (8.5-10.3); CREATININE 3.2 mg/dL (0.4-1.0); PHOSPHORUS 3.5 mg/dL (2.5-4.6)
== END ==
LOC: LAB.WCP 14:07
PROVIDERS: ATTEND Internal Medicine
DX: N18.4 Chronic kidney disease, stage 4 (severe) (principal)
CPT/HCPCS: 36415; 80069; 85025

== ENCOUNTER 2020-04-13 11:28 | Outpatient (CLI) | payer MEDICARE, OTHER ==
[2020-04-13 18:38] LABS: BASOPHILS # (AUTO) 0.1 10^3/uL (0.0-0.1); BASOPHILS % (AUTO) 0.7 %; EOSINOPHILS # (AUTO) 0.3 10^3/uL (0.0-0.7); EOSINOPHILS % (AUTO) 3.9 %; HGB - HEMOGLOBIN 10.3 g/dL (12.0-16.0); LYMPHOCYTES # (AUTO) 2.7 10^3/uL (1.5-3.5); MEAN CORPUSCULAR HEMOGLOBIN 29.7 pg (27.0-31.0); MEAN CORPUSCULAR HGB CONC 29.8 g/dL (32.0-36.0); MEAN CORPUSCULAR VOLUME 99.7 fL (81.0-99.0); MEAN PLATELET VOLUME 12.4 fL (7.9-10.8); MONOCYTES # (AUTO) 0.6 10^3/uL (0.0-1.0); MONOCYTES % (AUTO) 8.3 %; NEUTROPHILS # (AUTO) 3.6 10^3/uL (1.5-6.6); NEUTROPHILS % (AUTO) 49.8 %; PLT - PLATELET COUNT 214 10^3/uL (130-450); RED BLOOD COUNT 3.47 10^6/uL (4.20-5.40); RED CELL DISTRIBUTION WIDTH 13.3 % (12.0-15.0); WHITE BLOOD COUNT 7.2 x10^3/uL (4.8-10.8)
[2020-04-13 19:02] LABS: ALBUMIN 3.4 g/dL (3.2-5.5); CALCIUM 9.6 mg/dL (8.5-10.3); PHOSPHORUS 4.3 mg/dL (2.5-4.6)
== END 2020-04-13 23:59 | disposition home or self-care (01) ==
LOC: LAB.WCP 11:28
PROVIDERS: ATTEND Internal Medicine
DX: N18.4 Chronic kidney disease, stage 4 (severe) (principal)
CPT/HCPCS: 36415; 80069; 85025

== ENCOUNTER 2020-05-15 08:00 | Outpatient (CLI) | payer MEDICARE, OTHER ==
[2020-05-15 18:35] LABS: BASOPHILS # (AUTO) 0.1 10^3/uL (0.0-0.1); BASOPHILS % (AUTO) 0.8 %; EOSINOPHILS # (AUTO) 0.3 10^3/uL (0.0-0.7); EOSINOPHILS % (AUTO) 3.3 %; HGB - HEMOGLOBIN 10.4 g/dL (12.0-16.0); LYMPHOCYTES # (AUTO) 2.7 10^3/uL (1.5-3.5); MEAN CORPUSCULAR HEMOGLOBIN 30.2 pg (27.0-31.0); MEAN CORPUSCULAR HGB CONC 30.2 g/dL (32.0-36.0); MONOCYTES # (AUTO) 0.7 10^3/uL (0.0-1.0); MONOCYTES % (AUTO) 8.2 %; NEUTROPHILS % (AUTO) 56.5 %; PLT - PLATELET COUNT 256 10^3/uL (130-450); RED BLOOD COUNT 3.44 10^6/uL (4.20-5.40); WHITE BLOOD COUNT 8.8 x10^3/uL (4.8-10.8)
[2020-05-15 18:40] LABS: ALBUMIN 3.4 g/dL (3.2-5.5); CREATININE 3.1 mg/dL (0.4-1.0); PHOSPHORUS 3.3 mg/dL (2.5-4.6)
== END 2020-05-15 23:59 | disposition home or self-care (01) ==
LOC: LAB.WCP 08:00
PROVIDERS: ATTEND Internal Medicine
DX: N18.4 Chronic kidney disease, stage 4 (severe) (principal)
CPT/HCPCS: 36415; 80069; 85025

== ENCOUNTER 2020-06-15 08:00 | Outpatient (CLI) | payer MEDICARE, OTHER ==
[2020-06-15 18:18] LABS: BASOPHILS # (AUTO) 0.1 10^3/uL (0.0-0.1); BASOPHILS % (AUTO) 0.6 %; EOSINOPHILS # (AUTO) 0.3 10^3/uL (0.0-0.7); EOSINOPHILS % (AUTO) 2.7 %; HGB - HEMOGLOBIN 10.9 g/dL (12.0-16.0); LYMPHOCYTES % (AUTO) 41.7 %; MEAN CORPUSCULAR HEMOGLOBIN 30.1 pg (27.0-31.0); MEAN CORPUSCULAR HGB CONC 30.4 g/dL (32.0-36.0); MEAN CORPUSCULAR VOLUME 98.9 fL (81.0-99.0); MEAN PLATELET VOLUME 12.1 fL (7.9-10.8); MONOCYTES # (AUTO) 0.8 10^3/uL (0.0-1.0); MONOCYTES % (AUTO) 8.4 %; NEUTROPHILS # (AUTO) 4.5 10^3/uL (1.5-6.6); NEUTROPHILS % (AUTO) 46.3 %; PLT - PLATELET COUNT 248 10^3/uL (130-450); RED BLOOD COUNT 3.62 10^6/uL (4.20-5.40); RED CELL DISTRIBUTION WIDTH 13.2 % (12.0-15.0); WHITE BLOOD COUNT 9.6 x10^3/uL (4.8-10.8)
[2020-06-15 18:43] LABS: CHOL/HDL RATIO 4.4 (<4.4); CHOLESTEROL 236 mg/dL; HDL CHOLESTEROL 54 mg/dL; LDL CHOLESTEROL,CALCULATED 148 mg/dL; LDL/HDL RATIO 2.7 (<4.4); VLDL CHOLESTEROL 34 mg/dL
[2020-06-15 18:50] LABS: ALBUMIN 3.8 g/dL (3.2-5.5); CALCIUM 10.2 mg/dL (8.5-10.3); CREATININE 3.6 mg/dL (0.4-1.0); PHOSPHORUS 4.2 mg/dL (2.5-4.6)
== END 2020-06-15 23:59 | disposition home or self-care (01) ==
LOC: LAB.WCP 08:00
PROVIDERS: ATTEND Family Medicine
DX: E66.01 Morbid (severe) obesity due to excess calories (principal); E78.5 Hyperlipidemia, unspecified; R53.83 Other fatigue; N18.4 Chronic kidney disease, stage 4 (severe)
CPT/HCPCS: 36415; 80061; 80069; 83721; 84443; 85025

== ENCOUNTER 2020-07-20 08:00 | Outpatient (CLI) | payer MEDICARE, OTHER ==
[2020-07-20 19:17] LABS: BASOPHILS # (AUTO) 0.1 10^3/uL (0.0-0.1); BASOPHILS % (AUTO) 0.9 %; EOSINOPHILS # (AUTO) 0.2 10^3/uL (0.0-0.7); EOSINOPHILS % (AUTO) 2.1 %; HGB - HEMOGLOBIN 10.5 g/dL (12.0-16.0); LYMPHOCYTES # (AUTO) 2.4 10^3/uL (1.5-3.5); LYMPHOCYTES % (AUTO) 32.1 %; MEAN CORPUSCULAR HEMOGLOBIN 29.9 pg (27.0-31.0); MEAN CORPUSCULAR VOLUME 99.7 fL (81.0-99.0); MEAN PLATELET VOLUME 12.2 fL (7.9-10.8); MONOCYTES # (AUTO) 0.6 10^3/uL (0.0-1.0); MONOCYTES % (AUTO) 8.5 %; NEUTROPHILS # (AUTO) 4.2 10^3/uL (1.5-6.6); NEUTROPHILS % (AUTO) 56.1 %; PLT - PLATELET COUNT 251 10^3/uL (130-450); RED BLOOD COUNT 3.51 10^6/uL (4.20-5.40); RED CELL DISTRIBUTION WIDTH 13.2 % (12.0-15.0); WHITE BLOOD COUNT 7.5 x10^3/uL (4.8-10.8)
[2020-07-20 19:43] LABS: ALBUMIN/GLOBULIN RATIO 1.1 (1.0-2.2); BILIRUBIN,TOTAL 0.4 mg/dL (0.2-1.0); CALCIUM 10.1 mg/dL (8.5-10.3); CREATININE 3.4 mg/dL (0.4-1.0); TOTAL PROTEIN 7.8 g/dL (6.7-8.2)
[2020-07-20 20:09] LABS: HEMOGLOBIN A1c% 6.1 % (4.27-6.07)
[2020-07-23 13:36] LABS: HEPATITIS B SURFACE ANTIGEN NON-REACTIVE (NON-REACTIVE); HEPATITIS C ANTIBODY NON-REACTIVE (NON-REACTIVE)
== END 2020-07-20 23:59 | disposition home or self-care (01) ==
LOC: LAB.WCP 08:00
PROVIDERS: ATTEND Internal Medicine
DX: N18.6 End stage renal disease (principal); R73.03 Prediabetes
CPT/HCPCS: 36415; 80053; 82728; 83036; 83540; 84466; 85025; 86317; 86704; 86803; 87340

== ENCOUNTER 2020-08-20 15:04 | Outpatient (CLI) | payer MEDICARE, OTHER ==
[2020-08-20 18:44] LABS: ALBUMIN 3.5 g/dL (3.2-5.5); CALCIUM 9.8 mg/dL (8.5-10.3); CREATININE 3.4 mg/dL (0.4-1.0); PHOSPHORUS 4.4 mg/dL (2.5-4.6); POTASSIUM 4.5 mmol/L (3.5-5.0)
== END 2020-08-20 23:59 | disposition home or self-care (01) ==
LOC: LAB.WCP 15:04
PROVIDERS: ATTEND Family Medicine
DX: N18.6 End stage renal disease (principal)
CPT/HCPCS: 36415; 80053; 80061; 80069; 82728; 83036; 83540; 83721; 84443; 84466; 85025; 86140

== ENCOUNTER 2020-09-27 08:00 | Outpatient (CLI) | payer MEDICARE, OTHER ==
[2020-09-27 18:12] LABS: BASOPHILS # (AUTO) 0.1 10^3/uL (0.0-0.1); BASOPHILS % (AUTO) 0.8 %; EOSINOPHILS # (AUTO) 0.2 10^3/uL (0.0-0.7); EOSINOPHILS % (AUTO) 3.4 %; HCT - HEMATOCRIT 33.3 % (37.0-47.0); HGB - HEMOGLOBIN 9.8 g/dL (12.0-16.0); LYMPHOCYTES # (AUTO) 2.6 10^3/uL (1.5-3.5); LYMPHOCYTES % (AUTO) 36.6 %; MEAN CORPUSCULAR HEMOGLOBIN 29.1 pg (27.0-31.0); MEAN CORPUSCULAR HGB CONC 29.4 g/dL (32.0-36.0); MEAN CORPUSCULAR VOLUME 98.8 fL (81.0-99.0); MEAN PLATELET VOLUME 12.3 fL (7.9-10.8); MONOCYTES # (AUTO) 0.5 10^3/uL (0.0-1.0); MONOCYTES % (AUTO) 7.3 %; NEUTROPHILS # (AUTO) 3.7 10^3/uL (1.5-6.6); NEUTROPHILS % (AUTO) 51.5 %; PLT - PLATELET COUNT 215 10^3/uL (130-450); RED BLOOD COUNT 3.37 10^6/uL (4.20-5.40); RED CELL DISTRIBUTION WIDTH 13.2 % (12.0-15.0); WHITE BLOOD COUNT 7.1 x10^3/uL (4.8-10.8)
[2020-09-27 18:35] LABS: ALBUMIN 3.4 g/dL (3.2-5.5); ALBUMIN/GLOBULIN RATIO 0.9 (1.0-2.2); BILIRUBIN,TOTAL 0.5 mg/dL (0.2-1.0); CALCIUM 9.7 mg/dL (8.5-10.3); CREATININE 3.4 mg/dL (0.4-1.0); CRP - C-REACTIVE PROTEIN 1.4 mg/dL (0-1.0); POTASSIUM 4.4 mmol/L (3.5-5.0); TOTAL PROTEIN 7.1 g/dL (6.7-8.2)
[2020-09-27 19:39] LABS: ESTIMATED AVERAGE GLUCOSE 131 mg/dL (70-100); HEMOGLOBIN A1c% 6.2 % (4.27-6.07)
== END 2020-09-27 23:59 | disposition home or self-care (01) ==
LOC: LAB.WCP 08:00
PROVIDERS: ATTEND Family Medicine
DX: N18.4 Chronic kidney disease, stage 4 (severe) (principal); D63.1 Anemia in chronic kidney disease; E66.01 Morbid (severe) obesity due to excess calories; R79.82 Elevated C-reactive protein (CRP)
CPT/HCPCS: 36415; 80053; 82728; 83036; 83540; 84100; 84466; 85025; 86140

== ENCOUNTER 2020-11-12 08:00 | Outpatient (CLI) | payer MEDICARE, OTHER ==
[2020-11-12 18:20] LABS: BASOPHILS # (AUTO) 0.1 10^3/uL (0.0-0.1); BASOPHILS % (AUTO) 0.7 %; EOSINOPHILS # (AUTO) 0.3 10^3/uL (0.0-0.7); EOSINOPHILS % (AUTO) 3.1 %; HCT - HEMATOCRIT 34.4 % (37.0-47.0); LYMPHOCYTES # (AUTO) 3.5 10^3/uL (1.5-3.5); MEAN CORPUSCULAR HEMOGLOBIN 29.2 pg (27.0-31.0); MEAN CORPUSCULAR HGB CONC 29.1 g/dL (32.0-36.0); MEAN CORPUSCULAR VOLUME 100.3 fL (81.0-99.0); MEAN PLATELET VOLUME 12.8 fL (7.9-10.8); MONOCYTES # (AUTO) 0.6 10^3/uL (0.0-1.0); MONOCYTES % (AUTO) 7.2 %; NEUTROPHILS # (AUTO) 3.7 10^3/uL (1.5-6.6); NEUTROPHILS % (AUTO) 45.6 %; PLT - PLATELET COUNT 207 10^3/uL (130-450); RED BLOOD COUNT 3.43 10^6/uL (4.20-5.40); RED CELL DISTRIBUTION WIDTH 14.1 % (12.0-15.0); WHITE BLOOD COUNT 8.2 x10^3/uL (4.8-10.8)
[2020-11-12 18:32] LABS: ALBUMIN 3.6 g/dL (3.2-5.5); CALCIUM 9.6 mg/dL (8.5-10.3); CREATININE 3.2 mg/dL (0.4-1.0)
== END 2020-11-12 23:59 | disposition home or self-care (01) ==
LOC: LAB.WCP 08:00
PROVIDERS: ATTEND Internal Medicine Nephrology
DX: N18.4 Chronic kidney disease, stage 4 (severe) (principal)
CPT/HCPCS: 36415; 80069; 85025

== ENCOUNTER 2020-12-24 08:00 | Outpatient (CLI) | payer MEDICARE, OTHER ==
[2020-12-24 18:36] LABS: BASOPHILS # (AUTO) 0.1 10^3/uL (0.0-0.1); BASOPHILS % (AUTO) 0.8 %; EOSINOPHILS # (AUTO) 0.2 10^3/uL (0.0-0.7); EOSINOPHILS % (AUTO) 2.3 %; HCT - HEMATOCRIT 32.7 % (37.0-47.0); HGB - HEMOGLOBIN 10.1 g/dL (12.0-16.0); LYMPHOCYTES # (AUTO) 2.8 10^3/uL (1.5-3.5); LYMPHOCYTES % (AUTO) 35.9 %; MEAN CORPUSCULAR HEMOGLOBIN 30.5 pg (27.0-31.0); MEAN CORPUSCULAR HGB CONC 30.9 g/dL (32.0-36.0); MEAN CORPUSCULAR VOLUME 98.8 fL (81.0-99.0); MEAN PLATELET VOLUME 12.2 fL (7.9-10.8); MONOCYTES # (AUTO) 0.6 10^3/uL (0.0-1.0); MONOCYTES % (AUTO) 7.8 %; NEUTROPHILS # (AUTO) 4.1 10^3/uL (1.5-6.6); NEUTROPHILS % (AUTO) 52.9 %; PLT - PLATELET COUNT 210 10^3/uL (130-450); RED BLOOD COUNT 3.31 10^6/uL (4.20-5.40); RED CELL DISTRIBUTION WIDTH 13.8 % (12.0-15.0); WHITE BLOOD COUNT 7.7 x10^3/uL (4.8-10.8)
[2020-12-24 19:05] LABS: ALBUMIN 3.7 g/dL (3.2-5.5); CALCIUM 9.5 mg/dL (8.5-10.3); CREATININE 3.9 mg/dL (0.4-1.0); PHOSPHORUS 4.3 mg/dL (2.5-4.6); POTASSIUM 4.6 mmol/L (3.5-5.0)
[2020-12-24 19:12] LABS: THYROID STIMULATING HORMONE 2.21 uIU/mL (0.34-5.60)
[2020-12-24 19:24] LABS: FOLATE 8.07 ng/mL (5.90 - >24.8)
== END 2020-12-24 23:59 | disposition home or self-care (01) ==
LOC: LAB.WCP 08:00
PROVIDERS: ATTEND Internal Medicine Nephrology
DX: N18.5 Chronic kidney disease, stage 5 (principal); D63.1 Anemia in chronic kidney disease; R53.83 Other fatigue
CPT/HCPCS: 36415; 80069; 82306; 82607; 82728; 82746; 83540; 83970; 84443; 84466; 85025

== ENCOUNTER 2021-01-23 11:25 | Outpatient (CLI) | payer MEDICARE, OTHER ==
[2021-01-23 17:56] LABS: BASOPHILS % (AUTO) 0.5 %; EOSINOPHILS # (AUTO) 0.2 10^3/uL (0.0-0.7); EOSINOPHILS % (AUTO) 2.5 %; HCT - HEMATOCRIT 31.9 % (37.0-47.0); HGB - HEMOGLOBIN 9.7 g/dL (12.0-16.0); LYMPHOCYTES # (AUTO) 3.2 10^3/uL (1.5-3.5); LYMPHOCYTES % (AUTO) 38.7 %; MEAN CORPUSCULAR HEMOGLOBIN 30.5 pg (27.0-31.0); MEAN CORPUSCULAR HGB CONC 30.4 g/dL (32.0-36.0); MEAN CORPUSCULAR VOLUME 100.3 fL (81.0-99.0); MEAN PLATELET VOLUME 12.3 fL (7.9-10.8); MONOCYTES # (AUTO) 0.6 10^3/uL (0.0-1.0); MONOCYTES % (AUTO) 7.1 %; NEUTROPHILS # (AUTO) 4.1 10^3/uL (1.5-6.6); PLT - PLATELET COUNT 208 10^3/uL (130-450); RED BLOOD COUNT 3.18 10^6/uL (4.20-5.40); RED CELL DISTRIBUTION WIDTH 13.4 % (12.0-15.0); WHITE BLOOD COUNT 8.1 x10^3/uL (4.8-10.8)
[2021-01-23 18:09] LABS: ALBUMIN 3.5 g/dL (3.2-5.5); ALKALINE PHOSPHATASE 99 IU/L (42-121); ALT ALANINE AMINOTRANSFERASE 15 IU/L (10-60); AST ASPARTATE AMINOTRANSFERASE 17 IU/L (10-42); BILIRUBIN,TOTAL 0.5 mg/dL (0.2-1.0); TOTAL PROTEIN 7.2 g/dL (6.7-8.2)
[2021-01-23 19:03] LABS: BILIRUBIN,DIRECT < 0.1 mg/dL (0.1-0.5)
== END 2021-01-23 23:59 | disposition home or self-care (01) ==
LOC: LAB.WCP 11:25
PROVIDERS: ATTEND Internal Medicine Nephrology
DX: N18.4 Chronic kidney disease, stage 4 (severe) (principal)
CPT/HCPCS: 36415; 80076; 85025

== ENCOUNTER 2021-01-29 14:36 | Outpatient (CLI) | payer MEDICARE, OTHER ==
[2021-01-29 18:24] LABS: ALBUMIN 3.6 g/dL (3.2-5.5); CALCIUM 9.5 mg/dL (8.5-10.3); CREATININE 3.8 mg/dL (0.4-1.0); PHOSPHORUS 4.2 mg/dL (2.5-4.6); POTASSIUM 4.7 mmol/L (3.5-5.0)
== END 2021-01-29 23:59 | disposition home or self-care (01) ==
LOC: LAB.WCP 14:36
PROVIDERS: ATTEND Internal Medicine Nephrology
DX: N18.4 Chronic kidney disease, stage 4 (severe) (principal)
CPT/HCPCS: 36415; 80069

== ENCOUNTER 2021-03-05 13:38 | Outpatient (CLI) | payer MEDICARE, OTHER ==
[2021-03-05 18:01] LABS: BASOPHILS # (AUTO) 0.1 10^3/uL (0.0-0.1); BASOPHILS % (AUTO) 0.7 %; EOSINOPHILS # (AUTO) 0.4 10^3/uL (0.0-0.7); EOSINOPHILS % (AUTO) 3.7 %; HGB - HEMOGLOBIN 9.9 g/dL (12.0-16.0); LYMPHOCYTES # (AUTO) 3.7 10^3/uL (1.5-3.5); LYMPHOCYTES % (AUTO) 38.3 %; MEAN CORPUSCULAR HEMOGLOBIN 30.3 pg (27.0-31.0); MEAN CORPUSCULAR VOLUME 100.9 fL (81.0-99.0); MEAN PLATELET VOLUME 11.5 fL (7.9-10.8); MONOCYTES # (AUTO) 0.6 10^3/uL (0.0-1.0); MONOCYTES % (AUTO) 5.7 %; NEUTROPHILS % (AUTO) 51.3 %; PLT - PLATELET COUNT 250 10^3/uL (130-450); RED BLOOD COUNT 3.27 10^6/uL (4.20-5.40); RED CELL DISTRIBUTION WIDTH 12.8 % (12.0-15.0); WHITE BLOOD COUNT 9.8 x10^3/uL (4.8-10.8)
[2021-03-05 18:18] LABS: ALBUMIN 3.6 g/dL (3.2-5.5); CALCIUM 9.5 mg/dL (8.5-10.3); CREATININE 3.7 mg/dL (0.4-1.0); PHOSPHORUS 5.3 mg/dL (2.5-4.6); POTASSIUM 4.8 mmol/L (3.5-5.0)
== END 2021-03-05 23:59 | disposition home or self-care (01) ==
LOC: LAB.WCP 13:38
PROVIDERS: ATTEND Internal Medicine Nephrology
DX: N18.4 Chronic kidney disease, stage 4 (severe) (principal)
CPT/HCPCS: 36415; 80069; 85025

== ENCOUNTER 2021-04-08 12:39 | Outpatient (CLI) | payer MEDICARE, OTHER | END 2021-04-08 12:40 | disposition home or self-care (01) | LOC: DI.N 12:39 | DX: Z53.9 Procedure and treatment not carried out, unspecified reason (principal) ==

== ENCOUNTER 2021-04-08 13:25 | Outpatient (CLI) | payer MEDICARE, OTHER ==
[2021-04-08 18:09] LABS: BASOPHILS # (AUTO) 0.1 10^3/uL (0.0-0.1); BASOPHILS % (AUTO) 0.9 %; EOSINOPHILS # (AUTO) 0.7 10^3/uL (0.0-0.7); EOSINOPHILS % (AUTO) 6.4 %; HGB - HEMOGLOBIN 10.2 g/dL (12.0-16.0); LYMPHOCYTES # (AUTO) 4.1 10^3/uL (1.5-3.5); LYMPHOCYTES % (AUTO) 39.5 %; MEAN CORPUSCULAR HEMOGLOBIN 30.7 pg (27.0-31.0); MEAN CORPUSCULAR VOLUME 102.4 fL (81.0-99.0); MONOCYTES # (AUTO) 0.8 10^3/uL (0.0-1.0); MONOCYTES % (AUTO) 7.3 %; NEUTROPHILS # (AUTO) 4.7 10^3/uL (1.5-6.6); NEUTROPHILS % (AUTO) 45.4 %; PLT - PLATELET COUNT 226 10^3/uL (130-450); RED BLOOD COUNT 3.32 10^6/uL (4.20-5.40); RED CELL DISTRIBUTION WIDTH 12.8 % (12.0-15.0); WHITE BLOOD COUNT 10.3 x10^3/uL (4.8-10.8)
[2021-04-08 18:31] LABS: ALBUMIN 3.8 g/dL (3.2-5.5); CALCIUM 9.9 mg/dL (8.5-10.3); CREATININE 3.8 mg/dL (0.4-1.0); POTASSIUM 5.2 mmol/L (3.5-5.0)
== END 2021-04-08 23:59 | disposition home or self-care (01) ==
LOC: LAB.WCP 13:25
PROVIDERS: ATTEND Internal Medicine Nephrology
DX: N18.4 Chronic kidney disease, stage 4 (severe) (principal)
CPT/HCPCS: 36415; 80069; 85025

== ENCOUNTER 2021-05-14 08:00 | Outpatient (CLI) | payer MEDICARE, OTHER ==
[2021-05-14 22:28] LABS: ALBUMIN 3.6 g/dL (3.2-5.5); CALCIUM 9.7 mg/dL (8.5-10.3); CREATININE 3.3 mg/dL (0.4-1.0); PHOSPHORUS 4.8 mg/dL (2.5-4.6); POTASSIUM 4.9 mmol/L (3.5-5.0)
[2021-05-14 22:32] LABS: FERRITIN 154.2 ng/mL (11.0-306.8)
[2021-05-15 09:26] LABS: BASOPHILS # (AUTO) 0.1 10^3/uL (0.0-0.1); BASOPHILS % (AUTO) 0.7 %; EOSINOPHILS # (AUTO) 0.5 10^3/uL (0.0-0.7); EOSINOPHILS % (AUTO) 6.5 %; HGB - HEMOGLOBIN 9.4 g/dL (12.0-16.0); LYMPHOCYTES # (AUTO) 2.6 10^3/uL (1.5-3.5); LYMPHOCYTES % (AUTO) 31.3 %; MEAN CORPUSCULAR HEMOGLOBIN 29.7 pg (27.0-31.0); MEAN CORPUSCULAR HGB CONC 28.5 g/dL (32.0-36.0); MEAN CORPUSCULAR VOLUME 104.4 fL (81.0-99.0); MONOCYTES # (AUTO) 0.6 10^3/uL (0.0-1.0); NEUTROPHILS # (AUTO) 4.4 10^3/uL (1.5-6.6); NEUTROPHILS % (AUTO) 54.1 %; PLT - PLATELET COUNT 234 10^3/uL (130-450); RED BLOOD COUNT 3.16 10^6/uL (4.20-5.40); RED CELL DISTRIBUTION WIDTH 12.8 % (12.0-15.0); WHITE BLOOD COUNT 8.2 x10^3/uL (4.8-10.8)
== END 2021-05-14 23:59 | disposition home or self-care (01) ==
LOC: LAB.WCP 08:00
PROVIDERS: ATTEND Internal Medicine Nephrology
DX: N18.5 Chronic kidney disease, stage 5 (principal); D63.1 Anemia in chronic kidney disease
CPT/HCPCS: 36415; 80069; 82728; 83540; 83970; 84466; 85025

== ENCOUNTER 2021-05-22 08:51 | Outpatient (CLI) | payer MEDICARE, OTHER ==
--- NOTE | 2021-05-23 13:38 | Mammography Report ---
BILATERAL DIGITAL DIAGNOSTIC MAMMOGRAM 3D/2D: 05/22/2021 CLINICAL: Palpable right breast lump. Comparison is made to exams dated: 10/07/2016 mammogram, 04/20/2013 mammogram - [facility], a nd 07/29/2010 mammogram - [facility]. The tissue of both breasts is predominantly f atty. There are multiple new irregular equal density focal asymmetries with an indistinct margin in the rig ht breast in both the inferior and superior and lateral regions seen on both CC and MLO views. There is extensive new architectural distortion associated with the focal asymmetries. IMPRESSION: INCOMPLETE: NEEDS ADDITIONAL IMAGING EVALUATION The multiple new irregular equal density focal asymmetries in the right breast are indeterminate. An ultrasound will be performed. This exam was interpreted at Station ID: [id number]. NOTE: For mammograms, a report in lay terms will be sent to the patient. Approximately 15% of breast malignancies will not be visualized mammographically. In the management of a palpable breast mass, a negative mammogram must not discourage biopsy of a clinically suspicious lesion. Electronically Signed By: Deangelo Chung M.D. jr/:05/22/2021 11:18:45 ACR BI-RADS Category 0: Incomplete 3340F PARENCHYMAL PATTERN: (F) - The breast(s) demonstrate(s) diffuse fatty replacement. BI-RADS CATEGORY: (0) - 0 Unspecified - other recall n/a LATERALITY: (B)
--- NOTE | 2021-05-23 13:38 | Ultrasound Report ---
LIMITED ULTRASOUND OF RIGHT BREAST AND AXILLA: 05/22/2021 CLINICAL: Palpable right breast lump. Patient returns today to evaluate asymmetries in the right [address]. Comparison is made to exams dated: 05/22/2021 mammogram - [facility], 10/07/2016 [facility] mogram, 04/20/2013 mammogram - [facility], and 07/29/2010 mammogram - [facility]. Color flow and real-time ultrasound of the right breast 6-7 o'clock, 9 o'clock, 11-12 o'clock, and ax illa regions were performed. Ríos scale images of the real-time examination were reviewed. Multiple shadowing, vascular, and solid masses in the right breast. The largest and most suspicious i s at 12:00 approximately 5-7 cm from the nipple and is exexyh-yfgj-vacc with marked spiculated and an gular borders. The other masses are small, less than 1.5 cm, and are located at 6:00, 7:00, and 9:00. IMPRESSION: HIGHLY SUGGESTIVE OF MALIGNANCY Multiple right breast masses highly suspicious for multicentric malignancy. US-guided biopsy of the 1 2:00 and 9:00 masses recommended. This exam was interpreted at Station ID: [id number]. Electronically Signed By: Deangelo Chung M.D. jr/:05/22/2021 11:24:51 Ultrasound BI-RADS: 5 Highly suggestive of malignancy BI-RADS CATEGORY: (5) - 5 None [id number] Immediate follow-up LATERALITY: ()
== END 2021-05-22 08:52 | disposition home or self-care (01) ==
LOC: DI 08:51
PROVIDERS: ATTEND Family Medicine
DX: N63.15 Unspecified lump in the right breast, overlapping quadrants (principal); N63.13 Unspecified lump in the right breast, lower outer quadrant

== ENCOUNTER 2021-05-28 12:51 | Outpatient (CLI) | payer MEDICARE, OTHER ==
[~2021-05-28 12:51] MED LIST: LIDOCAINE 1%-EPI 1:100000 20 ML MDV ONE
--- NOTE | 2021-06-06 13:53 | Ultrasound Report ---
ULTRASOUND GUIDED BIOPSY RIGHT BREAST USING VACUUM DEVICE WITH MARKING DEVICE INSERTED AND POST ULTRA SOUND IMAGIN05/28/2021 CLINICAL: Right breast mass. PATIENT CONSENT: Risks (minor bleeding, infection, vasovagal reaction and repeat procedure), benefits and alternatives were explained to the patient and written informed consent was obtained. Correlation is made to exams dated: 05/22/2021 ultrasound, 05/22/2021 mammogram - [facility], 10/07/2016 mammogram, 04/20/2013 mammogram - [facility], and 07/29/2010 mammogram - [facility]. An ultrasound guided biopsy using real-time ultrasound was performed for the mass located in the righ t breast at 9 o'clock middle depth. This was described on the previous ultrasound report. The skin was prepped in the usual manner. Local anesthetic was administered to the access site. A skin sandra was made in the breast. The abnormality was approached from the lateral aspect. A 12 gauge biopsy n eedle was placed adjacent to the abnormality under ultrasound guidance. Once the needle was document ed to be in the correct location, three specimens were obtained using the [employer] system. A cli p was inserted into the biopsy cavity. A skin closure strip and a sterile dressing were applied to t he access site. Post procedure ultrasound imaging demonstrates the location device at the targeted a lefty. The specimens were sent to the laboratory for pathological analysis. IMPRESSION: ULTRASOUND GUIDED BIOPSY BENIGN Ultrasound guided biopsy of the mass in the right breast at 9 o'clock middle depth was successful wit h no apparent post procedure complications. Pathology indicates benign fibrous mastopathy and fibroc ystic changes (FC). Pathology results are concordant with imaging findings. This exam was interpreted at Station ID: [id number]. Deangelo Chung M.D., jr/yosvany:06/06/2021 12:36:37 BI-RADS CATEGORY: () - Unspecified - other recall n/a LATERALITY: (B)
--- NOTE | 2021-06-06 13:53 | Ultrasound Report ---
ULTRASOUND GUIDED BIOPSY RIGHT BREAST USING VACUUM DEVICE WITH MARKING DEVICE INSERTED AND POST ULTRA SOUND IMAGIN05/28/2021 CLINICAL: Right breast mass. PATIENT CONSENT: Risks (minor bleeding, infection, vasovagal reaction and repeat procedure), benefits and alternatives were explained to the patient and written informed consent was obtained. Correlation is made to exams dated: 05/22/2021 mammogram - [facility], 10/07/2016 [facility] mmogram, 04/20/2013 mammogram - [facility], and 07/29/2010 mammogram - [facility]. An ultrasound guided biopsy using real-time ultrasound was performed for the mass located in the righ t breast at 12 o'clock middle depth. This was described on the previous ultrasound report. The skin was prepped in the usual manner. Local anesthetic was administered to the access site. A skin sandra was made in the breast. The abnormality was approached from the lateral aspect. A 12 gauge biopsy needle was placed adjacent to the abnormality under ultrasound guidance. Once the needle was documen muriel to be in the correct location, three specimens were obtained using the [employer] system. A cl ip was inserted into the biopsy cavity. A skin closure strip and a sterile dressing were applied to the access site. Post procedure ultrasound imaging demonstrates the location device at the targeted area. The specimens were sent to the laboratory for pathological analysis. IMPRESSION: ULTRASOUND GUIDED BIOPSY MALIGNANT Ultrasound guided biopsy of the mass in the right breast at 12 o'clock middle depth was successful wi th no apparent post procedure complications. Pathology indicates malignant invasive lobular carcinom a (IL). Pathology results are concordant with imaging findings. A surgical/oncologic consultation i s recommended. This exam was interpreted at Station ID: [id number]. Deangelo Chung M.D., jr/yosvany:06/06/2021 12:35:53 BI-RADS CATEGORY: () - Unspecified - other recall n/a LATERALITY: (B)
== END 2021-05-28 12:52 | disposition home or self-care (01) ==
LOC: DI 12:51
PROVIDERS: ATTEND Family Medicine
DX: C50.811 Malignant neoplasm of overlapping sites of right female breast (principal); Z17.0 Estrogen receptor positive status [ER+]; N60.11 Diffuse cystic mastopathy of right breast
CPT/HCPCS: 19083; 19084; 88305; 88341; 88342; 88360

== ENCOUNTER 2021-06-14 11:14 | Outpatient (CLI) | payer MEDICARE, OTHER ==
[2021-06-14 18:02] LABS: BASOPHILS # (AUTO) 0.1 10^3/uL (0.0-0.1); BASOPHILS % (AUTO) 0.7 %; EOSINOPHILS # (AUTO) 0.9 10^3/uL (0.0-0.7); EOSINOPHILS % (AUTO) 8.9 %; HCT - HEMATOCRIT 33.8 % (37.0-47.0); HGB - HEMOGLOBIN 9.9 g/dL (12.0-16.0); LYMPHOCYTES # (AUTO) 3.9 10^3/uL (1.5-3.5); LYMPHOCYTES % (AUTO) 38.2 %; MEAN CORPUSCULAR HEMOGLOBIN 29.6 pg (27.0-31.0); MEAN CORPUSCULAR HGB CONC 29.3 g/dL (32.0-36.0); MEAN CORPUSCULAR VOLUME 100.9 fL (81.0-99.0); MONOCYTES # (AUTO) 0.8 10^3/uL (0.0-1.0); MONOCYTES % (AUTO) 7.4 %; NEUTROPHILS # (AUTO) 4.5 10^3/uL (1.5-6.6); NEUTROPHILS % (AUTO) 44.5 %; PLT - PLATELET COUNT 260 10^3/uL (130-450); RED BLOOD COUNT 3.35 10^6/uL (4.20-5.40); RED CELL DISTRIBUTION WIDTH 13.2 % (12.0-15.0); WHITE BLOOD COUNT 10.2 x10^3/uL (4.8-10.8)
[2021-06-14 18:19] LABS: ALBUMIN 3.4 g/dL (3.2-5.5); CALCIUM 9.8 mg/dL (8.5-10.3); CREATININE 3.5 mg/dL (0.4-1.0); PHOSPHORUS 3.7 mg/dL (2.5-4.6); POTASSIUM 4.6 mmol/L (3.5-5.0)
== END 2021-06-14 11:15 | disposition home or self-care (01) ==
LOC: LAB.N 11:14
PROVIDERS: ATTEND Internal Medicine Nephrology
DX: N18.4 Chronic kidney disease, stage 4 (severe) (principal)
CPT/HCPCS: 36415; 80069; 85025

== ENCOUNTER 2021-07-25 12:51 | Outpatient (CLI) | payer MEDICARE, OTHER ==
[2021-07-25 13:04] LABS: BASOPHILS # (AUTO) 0.1 10^3/uL (0.0-0.1); BASOPHILS % (AUTO) 0.5 %; EOSINOPHILS # (AUTO) 0.7 10^3/uL (0.0-0.7); EOSINOPHILS % (AUTO) 6.4 %; HCT - HEMATOCRIT 33.3 % (37.0-47.0); LYMPHOCYTES # (AUTO) 3.6 10^3/uL (1.5-3.5); LYMPHOCYTES % (AUTO) 31.9 %; MEAN CORPUSCULAR HEMOGLOBIN 29.9 pg (27.0-31.0); MEAN CORPUSCULAR VOLUME 99.7 fL (81.0-99.0); MEAN PLATELET VOLUME 11.3 fL (7.9-10.8); MONOCYTES # (AUTO) 0.8 10^3/uL (0.0-1.0); MONOCYTES % (AUTO) 7.1 %; NEUTROPHILS # (AUTO) 6.1 10^3/uL (1.5-6.6); NEUTROPHILS % (AUTO) 53.7 %; PLT - PLATELET COUNT 232 10^3/uL (130-450); RED BLOOD COUNT 3.34 10^6/uL (4.20-5.40); RED CELL DISTRIBUTION WIDTH 13.7 % (12.0-15.0); WHITE BLOOD COUNT 11.3 x10^3/uL (4.8-10.8)
[2021-07-25 13:18] LABS: ALBUMIN 3.6 g/dL (3.2-5.5); CALCIUM 9.6 mg/dL (8.5-10.3); CREATININE 3.4 mg/dL (0.4-1.0); PHOSPHORUS 3.1 mg/dL (2.5-4.6); POTASSIUM 4.4 mmol/L (3.5-5.0)
== END 2021-07-25 12:52 | disposition home or self-care (01) ==
LOC: LAB 12:51
PROVIDERS: ATTEND Internal Medicine Nephrology
DX: N18.4 Chronic kidney disease, stage 4 (severe) (principal)
CPT/HCPCS: 36415; 80069; 85025

== ENCOUNTER 2021-08-23 14:02 | Outpatient (CLI) | payer MEDICARE, OTHER ==
[2021-08-23 18:43] LABS: BASOPHILS # (AUTO) 0.1 10^3/uL (0.0-0.1); BASOPHILS % (AUTO) 0.5 %; EOSINOPHILS # (AUTO) 0.3 10^3/uL (0.0-0.7); EOSINOPHILS % (AUTO) 2.8 %; LYMPHOCYTES # (AUTO) 3.5 10^3/uL (1.5-3.5); LYMPHOCYTES % (AUTO) 30.1 %; MEAN CORPUSCULAR HEMOGLOBIN 30.2 pg (27.0-31.0); MEAN CORPUSCULAR HGB CONC 30.3 g/dL (32.0-36.0); MEAN CORPUSCULAR VOLUME 99.7 fL (81.0-99.0); MEAN PLATELET VOLUME 12.3 fL (7.9-10.8); MONOCYTES # (AUTO) 1.2 10^3/uL (0.0-1.0); MONOCYTES % (AUTO) 10.4 %; NEUTROPHILS # (AUTO) 6.5 10^3/uL (1.5-6.6); NEUTROPHILS % (AUTO) 55.9 %; PLT - PLATELET COUNT 225 10^3/uL (130-450); RED BLOOD COUNT 3.31 10^6/uL (4.20-5.40); RED CELL DISTRIBUTION WIDTH 13.8 % (12.0-15.0); WHITE BLOOD COUNT 11.6 x10^3/uL (4.8-10.8)
[2021-08-23 19:13] LABS: ALBUMIN 3.8 g/dL (3.2-5.5); CALCIUM 9.8 mg/dL (8.5-10.3); CREATININE 3.4 mg/dL (0.4-1.0); PHOSPHORUS 3.3 mg/dL (2.5-4.6); POTASSIUM 4.6 mmol/L (3.5-5.0)
[2021-08-23 19:17] LABS: FERRITIN 122.7 ng/mL (11.0-306.8)
== END 2021-08-23 14:03 | disposition home or self-care (01) ==
LOC: LAB.N 14:02
PROVIDERS: ATTEND Internal Medicine Nephrology
DX: N18.5 Chronic kidney disease, stage 5 (principal); D63.1 Anemia in chronic kidney disease
CPT/HCPCS: 36415; 80069; 82728; 83540; 83970; 84466; 85025

== ENCOUNTER 2021-09-18 11:44 | Outpatient (CLI) | payer MEDICARE, OTHER ==
[2021-09-18 18:27] LABS: BASOPHILS # (AUTO) 0.1 10^3/uL (0.0-0.1); BASOPHILS % (AUTO) 0.5 %; EOSINOPHILS # (AUTO) 0.3 10^3/uL (0.0-0.7); EOSINOPHILS % (AUTO) 3.1 %; HCT - HEMATOCRIT 31.6 % (37.0-47.0); HGB - HEMOGLOBIN 9.5 g/dL (12.0-16.0); LYMPHOCYTES # (AUTO) 3.7 10^3/uL (1.5-3.5); LYMPHOCYTES % (AUTO) 40.3 %; MEAN CORPUSCULAR HEMOGLOBIN 29.8 pg (27.0-31.0); MEAN CORPUSCULAR HGB CONC 30.1 g/dL (32.0-36.0); MEAN CORPUSCULAR VOLUME 99.1 fL (81.0-99.0); MEAN PLATELET VOLUME 12.4 fL (7.9-10.8); MONOCYTES # (AUTO) 0.7 10^3/uL (0.0-1.0); MONOCYTES % (AUTO) 7.5 %; NEUTROPHILS # (AUTO) 4.4 10^3/uL (1.5-6.6); NEUTROPHILS % (AUTO) 48.1 %; PLT - PLATELET COUNT 219 10^3/uL (130-450); RED BLOOD COUNT 3.19 10^6/uL (4.20-5.40); WHITE BLOOD COUNT 9.1 x10^3/uL (4.8-10.8)
[2021-09-18 18:38] LABS: ALBUMIN 3.5 g/dL (3.2-5.5); CALCIUM 9.7 mg/dL (8.5-10.3); CREATININE 3.6 mg/dL (0.4-1.0); PHOSPHORUS 4.4 mg/dL (2.5-4.6); POTASSIUM 5.1 mmol/L (3.5-5.0)
== END 2021-09-18 11:45 | disposition home or self-care (01) ==
LOC: LAB.N 11:44
PROVIDERS: ATTEND Internal Medicine Nephrology
DX: N18.4 Chronic kidney disease, stage 4 (severe) (principal)
CPT/HCPCS: 36415; 80069; 85025

== ENCOUNTER 2021-10-08 11:50 | Outpatient (CLI) | payer MEDICARE, OTHER ==
[2021-10-08 18:34] LABS: ALBUMIN 3.3 g/dL (3.2-5.5); CALCIUM 9.5 mg/dL (8.5-10.3); CREATININE 3.8 mg/dL (0.4-1.0); PHOSPHORUS 4.2 mg/dL (2.5-4.6); POTASSIUM 4.7 mmol/L (3.5-5.0)
== END 2021-10-08 11:51 | disposition home or self-care (01) ==
LOC: LAB.N 11:50
PROVIDERS: ATTEND Internal Medicine Nephrology
DX: N18.4 Chronic kidney disease, stage 4 (severe) (principal)
CPT/HCPCS: 36415; 80069; 85025

== ENCOUNTER 2021-12-10 12:37 | Outpatient (CLI) | payer MEDICARE, OTHER | END 2021-12-10 12:38 | disposition home or self-care (01) | LOC: LAB.N 12:37 | PROVIDERS: ATTEND Internal Medicine Nephrology | DX: Z53.9 Procedure and treatment not carried out, unspecified reason (principal) | CPT/HCPCS: 36415; 80069; 85025 ==

== ENCOUNTER 2021-12-11 16:39 | Outpatient (CLI) | payer MEDICARE, OTHER ==
[2021-12-11 20:28] LABS: BASOPHILS # (AUTO) 0.1 10^3/uL (0.0-0.1); BASOPHILS % (AUTO) 0.7 %; EOSINOPHILS # (AUTO) 0.3 10^3/uL (0.0-0.7); EOSINOPHILS % (AUTO) 4.4 %; HCT - HEMATOCRIT 28.6 % (37.0-47.0); HGB - HEMOGLOBIN 8.6 g/dL (12.0-16.0); LYMPHOCYTES # (AUTO) 2.1 10^3/uL (1.5-3.5); LYMPHOCYTES % (AUTO) 27.7 %; MEAN CORPUSCULAR HGB CONC 30.1 g/dL (32.0-36.0); MEAN CORPUSCULAR VOLUME 99.7 fL (81.0-99.0); MEAN PLATELET VOLUME 12.1 fL (7.9-10.8); MONOCYTES # (AUTO) 0.9 10^3/uL (0.0-1.0); MONOCYTES % (AUTO) 11.4 %; NEUTROPHILS # (AUTO) 4.1 10^3/uL (1.5-6.6); NEUTROPHILS % (AUTO) 55.4 %; PLT - PLATELET COUNT 190 10^3/uL (130-450); RED BLOOD COUNT 2.87 10^6/uL (4.20-5.40); WHITE BLOOD COUNT 7.5 x10^3/uL (4.8-10.8)
[2021-12-11 20:42] LABS: ALBUMIN 3.5 g/dL (3.2-5.5); CALCIUM 9.7 mg/dL (8.5-10.3); CREATININE 3.9 mg/dL (0.4-1.0); PHOSPHORUS 3.6 mg/dL (2.5-4.6); POTASSIUM 5.3 mmol/L (3.5-5.0)
== END 2021-12-11 16:40 | disposition home or self-care (01) ==
LOC: LAB.N 16:39
PROVIDERS: ATTEND Internal Medicine Nephrology
DX: N18.4 Chronic kidney disease, stage 4 (severe) (principal)
CPT/HCPCS: 36415; 80069; 85025

== ENCOUNTER 2022-02-17 14:16 | Outpatient (CLI) | payer MEDICARE, OTHER | END 2022-02-17 14:17 | disposition home or self-care (01) | LOC: LAB.N 14:16 | PROVIDERS: ATTEND Internal Medicine Nephrology | DX: Z53.9 Procedure and treatment not carried out, unspecified reason (principal) ==

== ENCOUNTER 2022-05-03 11:56 | Outpatient (CLI) | payer MEDICARE, OTHER ==
[2022-05-03 18:35] LABS: BASOPHILS # (AUTO) 0.1 10^3/uL (0.0-0.1); BASOPHILS % (AUTO) 0.5 %; EOSINOPHILS # (AUTO) 0.4 10^3/uL (0.0-0.7); HGB - HEMOGLOBIN 9.9 g/dL (12.0-16.0); LYMPHOCYTES # (AUTO) 2.7 10^3/uL (1.5-3.5); LYMPHOCYTES % (AUTO) 27.6 %; MEAN CORPUSCULAR HEMOGLOBIN 31.1 pg (27.0-31.0); MEAN CORPUSCULAR VOLUME 103.8 fL (81.0-99.0); MEAN PLATELET VOLUME 11.7 fL (7.9-10.8); MONOCYTES # (AUTO) 0.8 10^3/uL (0.0-1.0); MONOCYTES % (AUTO) 7.9 %; NEUTROPHILS # (AUTO) 5.7 10^3/uL (1.5-6.6); NEUTROPHILS % (AUTO) 59.3 %; PLT - PLATELET COUNT 235 10^3/uL (130-450); RED BLOOD COUNT 3.18 10^6/uL (4.20-5.40); RED CELL DISTRIBUTION WIDTH 13.1 % (12.0-15.0); WHITE BLOOD COUNT 9.7 x10^3/uL (4.8-10.8)
[2022-05-03 18:53] LABS: ALBUMIN 3.1 g/dL (3.2-5.5); CALCIUM 9.7 mg/dL (8.5-10.3); CREATININE 4.8 mg/dL (0.4-1.0); PHOSPHORUS 4.8 mg/dL (2.5-4.6); POTASSIUM 4.7 mmol/L (3.5-5.0)
== END 2022-05-03 11:57 | disposition home or self-care (01) ==
LOC: LAB.N 11:56
PROVIDERS: ATTEND Internal Medicine Nephrology
DX: N18.4 Chronic kidney disease, stage 4 (severe) (principal)
CPT/HCPCS: 36415; 80069; 85025

== ENCOUNTER 2022-05-23 11:44 | Outpatient (CLI) | payer MEDICARE, OTHER ==
[2022-05-23 18:17] LABS: BASOPHILS # (AUTO) 0.1 10^3/uL (0.0-0.1); BASOPHILS % (AUTO) 0.6 %; EOSINOPHILS # (AUTO) 0.3 10^3/uL (0.0-0.7); EOSINOPHILS % (AUTO) 4.3 %; HGB - HEMOGLOBIN 9.4 g/dL (12.0-16.0); LYMPHOCYTES % (AUTO) 25.5 %; MEAN CORPUSCULAR HEMOGLOBIN 31.3 pg (27.0-31.0); MEAN CORPUSCULAR HGB CONC 30.3 g/dL (32.0-36.0); MEAN CORPUSCULAR VOLUME 103.3 fL (81.0-99.0); MEAN PLATELET VOLUME 11.3 fL (7.9-10.8); MONOCYTES # (AUTO) 0.6 10^3/uL (0.0-1.0); MONOCYTES % (AUTO) 8.1 %; NEUTROPHILS # (AUTO) 4.7 10^3/uL (1.5-6.6); NEUTROPHILS % (AUTO) 60.6 %; PLT - PLATELET COUNT 233 10^3/uL (130-450); RED CELL DISTRIBUTION WIDTH 12.6 % (12.0-15.0); WHITE BLOOD COUNT 7.7 x10^3/uL (4.8-10.8)
[2022-05-23 18:31] LABS: BILIRUBIN,URINE NEGATIVE (NEGATIVE); GLUCOSE, URINE (UA) NEGATIVE (NEGATIVE); KETONES,URINE (UA) NEGATIVE (NEGATIVE); LEUKOCYTE ESTERASE, URINE TRACE (NEGATIVE); NITRITE,URINE NEGATIVE (NEGATIVE); OCCULT BLOOD,URINE TRACE-INTA (NEGATIVE); PROTEIN,URINE TRACE mg/dL (NEGATIVE); UROBILINOGEN,URINE 0.2 (NORMAL) E.U./dL (NORMAL)
[2022-05-23 18:37] LABS: FERRITIN 430.4 ng/mL (11.0-306.8)
[2022-05-23 18:38] LABS: CLARITY,URINE CLEAR (CLEAR)
[2022-05-23 18:55] LABS: ALBUMIN 3.5 g/dL (3.2-5.5); CALCIUM 9.7 mg/dL (8.5-10.3); PHOSPHORUS 4.6 mg/dL (2.5-4.6); POTASSIUM 4.4 mmol/L (3.5-5.0)
[2022-05-23 19:08] LABS: BACTERIA,URINE Few /HPF (None Seen); CASTS, URINE 0-2 Hyaline Casts /LPF; RBC,URINE 0-5 /HPF (0-5); SQUAMOUS EPITHELIAL CELL,UR MANY Squamous (<= Few)
== END 2022-05-23 11:45 | disposition home or self-care (01) ==
LOC: LAB.N 11:44
PROVIDERS: ATTEND Internal Medicine Nephrology
DX: N18.5 Chronic kidney disease, stage 5 (principal); D63.1 Anemia in chronic kidney disease
CPT/HCPCS: 36415; 80069; 81001; 81003; 81599; 82306; 82728; 83540; 83970; 84466; 85025; 87086

== ENCOUNTER 2022-06-25 08:00 | Outpatient (CLI) | payer MEDICARE, OTHER ==
[2022-06-27 04:09] LABS: HBsAG SCREEN Negative (Negative); HCV AB <0.1 s/co ratio (0.0-0.9); HEPATITIS B SURFACE AB QUANT <3.1 mIU/mL (Immunity>9.9)
== END 2022-06-25 23:59 | disposition home or self-care (01) ==
LOC: LAB.N 08:00
PROVIDERS: ATTEND Internal Medicine Nephrology
DX: N18.5 Chronic kidney disease, stage 5 (principal); Z11.59 Encounter for screening for other viral diseases
CPT/HCPCS: 36415; 86317; 86704; 86803; 87340

== ENCOUNTER 2022-07-17 14:49 | Outpatient (CLI) | payer MEDICARE, OTHER ==
[2022-07-17 15:19] LABS: BASOPHILS # (AUTO) 0.1 10^3/uL (0.0-0.1); BASOPHILS % (AUTO) 0.4 %; EOSINOPHILS # (AUTO) 0.2 10^3/uL (0.0-0.7); EOSINOPHILS % (AUTO) 1.6 %; HCT - HEMATOCRIT 29.1 % (37.0-47.0); HGB - HEMOGLOBIN 8.7 g/dL (12.0-16.0); LYMPHOCYTES # (AUTO) 2.1 10^3/uL (1.5-3.5); LYMPHOCYTES % (AUTO) 16.4 %; MEAN CORPUSCULAR HGB CONC 29.9 g/dL (32.0-36.0); MEAN CORPUSCULAR VOLUME 103.6 fL (81.0-99.0); MEAN PLATELET VOLUME 10.3 fL (7.9-10.8); MONOCYTES # (AUTO) 0.8 10^3/uL (0.0-1.0); NEUTROPHILS # (AUTO) 9.4 10^3/uL (1.5-6.6); NEUTROPHILS % (AUTO) 74.6 %; PLT - PLATELET COUNT 249 10^3/uL (130-450); RED BLOOD COUNT 2.81 10^6/uL (4.20-5.40); RED CELL DISTRIBUTION WIDTH 12.9 % (12.0-15.0); WHITE BLOOD COUNT 12.6 x10^3/uL (4.8-10.8)
--- NOTE | 2022-07-17 20:11 | XRAY Report ---
PROCEDURE: Chest 2 View X-Ray INDICATIONS: MUSCLE WEAKNESS TECHNIQUE: 2 views of the chest were acquired. COMPARISON: None FINDINGS: Surgical changes and devices: Multiple surgical clips project over the right chest. Surgical clips pr oject over the right upper quadrant compatible with prior cholecystectomy. Lungs and pleura: No pleural effusions or pneumothorax. Lungs are clear. No cavitary lesions identi fied. Mediastinum: Mediastinal contours are normal. Heart size is normal. Bones and chest wall: No suspicious bony abnormalities. Soft tissues appear unremarkable. IMPRESSION: Chest without acute cardiopulmonary abnormalities or focal airspace disease. Reviewed by: Joaquim Mcpherson MD on 07/17/2022 8:10 PM PST Approved by: Joaqium Mcpherson MD on 07/17/2022 8:10 PM PST Station ID: [id number]
[2022-07-18 05:11] LABS: HEPATITIS B CORE IGM AB Negative (Negative); HEPATITIS B SURFACE AB QUANT <3.1 mIU/mL (Immunity>9.9); HEPATITIS BE ANTIGEN Positive (Negative)
[2022-07-18 07:10] LABS: HCV AB <0.1 s/co ratio (0.0-0.9)
== END 2022-07-17 14:50 | disposition home or self-care (01) ==
LOC: LAB 14:49 → DI 14:50
PROVIDERS: ATTEND Internal Medicine Nephrology
DX: N18.5 Chronic kidney disease, stage 5 (principal); Z11.1 Encounter for screening for respiratory tuberculosis; Z11.59 Encounter for screening for other viral diseases
CPT/HCPCS: 36415; 85025; 86317; 86705; 86803; 87350

== ENCOUNTER 2022-09-22 13:19 | Outpatient (CLI) | payer MEDICARE, OTHER ==
--- NOTE | 2022-09-24 10:04 | Mammography Report ---
UNILATERAL LEFT DIGITAL SCREENING MAMMOGRAM 3D/2D: 09/22/2022 CLINICAL: Routine screening. Personal history of right breast cancer. Comparison is made to exams dated: 07/04/2021 ultrasound biopsy, 07/04/2021 ultrasound biopsy, 07/04/19 mammogram - [facility], 05/28/2021 ultrasound biopsy, 05/28/2021 ultrasound biopsy, an d 05/22/2021 ultrasound - [facility]. There are scattered areas of fibroglandular density in the left breast (category b / 25%-50% glandula r tissue). No significant masses, calcifications, or other findings are seen in the breast. There has been no significant interval change. IMPRESSION: NEGATIVE There is no mammographic evidence of malignancy. A 1 year screening mammogram is recommended. This exam was interpreted at Station ID: [id number]. NOTE: For mammograms, a report in lay terms will be sent to the patient. Approximately 15% of breast malignancies will not be visualized mammographically. In the management of a palpable breast mass, a negative mammogram must not discourage biopsy of a clinically suspicious lesion. Electronically Signed By: Joaquim govea/yosvany:09/22/2022 17:11:03 letter sent: No_Letter ACR BI-RADS Category 1: Negative 3341F PARENCHYMAL PATTERN: (A) - The breast(s) demonstrate(s) scattered fibroglandular densities. BI-RADS CATEGORY: (1) - 1 Mammogram [id number] 1 year screening LATERALITY: (B)
== END 2022-09-22 13:20 | disposition home or self-care (01) ==
LOC: DI.N 13:19
PROVIDERS: ATTEND Internal Medicine
DX: Z12.31 Encounter for screening mammogram for malignant neoplasm of breast (principal); Z85.3 Personal history of malignant neoplasm of breast

== ENCOUNTER 2023-04-10 14:45 | Outpatient (CLI) | payer MEDICARE, OTHER | END 2023-04-10 15:00 | disposition home or self-care (01) | LOC: LAB.N 14:45 | PROVIDERS: ATTEND Family Medicine | DX: L03.90 Cellulitis, unspecified (principal) | CPT/HCPCS: 87070; 87205 ==

== ENCOUNTER 2023-04-28 18:22 | Outpatient (CLI) | payer MEDICARE, OTHER | END 2023-04-28 18:23 | disposition critical access hospital (66) | LOC: EMS 18:22 | DX: R53.1 Weakness (principal); R29.810 Facial weakness; R47.1 Dysarthria and anarthria | CPT/HCPCS: A0425; A0429 ==

== ENCOUNTER 2023-04-28 18:46 | Emergency (ER) | payer MEDICARE, OTHER ==
--- NOTE | 2023-04-28 18:51 | ED Physician Documentation ---
PD HPI FOCAL NEURO - Stated complaint Stated Complaint: CODE STROKE - History obtained from History obtained from: Patient, EMS - Additional information Additional information: 72-year-old woman on PD and on Eliquis for history of A-fib presents with strokelike symptoms. Starting tonight at 1750 she dropped her phone and could not pick it up back up with the right hand and had word finding difficulties. On the way here improvement in her right upper extremity weakness, but still having significant word finding difficulties. 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: section HEENT: Tonsil/Adenoidectomy - Present Medications Home Medications: Ambulatory Orders Medication Instructions Recorded Confirmed Cholecalciferol (Vitamin D3) 2,000 unit PO DAILY 01/01/13 04/22/23 [Vitamin D] Ascorbic Acid [Vitamin C] 2,000 mg PO DAILY 08/07/21 04/22/23 Apixaban [Eliquis] 2.5 mg PO DAILY 11/20/22 04/22/23 Insulin Glargine,Hum.rec.anlog 20 unit SUBQ DAILY 12/22/22 04/22/23 [Insulin Glargine] Exemestane [Aromasin] 25 mg PO DAILY 03/11/23 04/22/23 Metoprolol Succinate [Toprol Xl] 25 mg PO DAILY 04/22/23 04/22/23 - Allergies Allergies/Adverse Reactions: Allergies Allergy/AdvReac Type Severity Reaction Status Date / Time simvastatin [From Zocor] AdvReac Severe muscle Verified 04/28/23 20:58 atrophy - Social History Does the pt smoke?: No Smoking Status: Never smoker Does the pt drink ETOH?: No PD ED PE NORMAL - Vitals Vital signs reviewed: Yes - General General: Other (She is alert and oriented to person and place but not time) - HEENT HEENT: PERRL, EOMI - Neck Neck: Supple, no meningeal sign, No bony TTP - Cardiac Cardiac: RRR, No murmur - Respiratory Respiratory: No respiratory distress, Clear bilaterally - Abdomen Abdomen: Non tender - Neuro Neuro: hearing aid consultant 2-12 intact Eye Opening: Spontaneous Motor: Obeys Commands Verbal: Confused GCS Score: 14 NIHSS - Time Time: 18:48 - Level of Consciousness Level of consciousness: (0) Alert, Keenly responsive LOC Questions: (2) Answers neither correct LOC Commands: (0) Performs both correctly - Gaze Best Gaze: (0) Normal - Visual Visual: (0) No loss - Facial Palsy Facial Palsy: (1) Minor paralysis - Motor Arms (both separate) Motor Arm (right): (1) Drift Motor Arm (left): (0) No drift - Motor Legs (both separate) Motor Leg (right): (1) Drift Motor Leg (left): (0) No drift - Limb Ataxia Limb Ataxia: (0) Absent - Sensory Sensory: (1) Ucah-kg-ilsfpiar loss - Best Language Best Language: (1) tmny-zh-iasfvae - Dysarthria Dysarthria: (0) Normal - Extinction and Inattention (formally neg Extinction and inattention: (0) No abnormality - Total Score/Results Total Score/Result: 7 Results - Vitals Vitals: Vital Signs - 24 hr 04/28/23 18:45 Temperature 36.4 C L Heart Rate 82 Respiratory 20 Rate Blood Pressure 150/89 H O2 Saturation 100 Oxygen O2 Source Room air - Labs Labs: Laboratory Tests 04/28/23 04/28/23 04/28/23 19:55 19:55 20:42 WBC 9.5 RBC 2.66 L Hgb 8.7 L Hct 29.0 L MCV 109.0 H MCH 32.7 H MCHC 30.0 L RDW 16.8 H Plt Count 240 MPV 10.5 Neut # (Auto) 6.5 Lymph # (Auto) 1.8 [place] # (Auto) 0.8 Eos # (Auto) 0.3 Baso # (Auto) 0.1 Absolute Nucleated RBC 0.03 Nucleated RBC % 0.3 INR (Fingerstick) 1.0 Sodium 137 Potassium 3.9 Chloride 101 Carbon Dioxide 23 Anion Gap 13.0 BUN 38 H Creatinine 9.2 H* Estimated GFR (MDRD) 4 L Glucose 160 H Calcium 10.1 Total Bilirubin 0.3 AST 18 ALT 10 Alkaline Phosphatase 83 Total Protein 6.6 Albumin 3.3 Globulin 3.3 Albumin/Globulin Ratio 1.0 Lipase 86 H Procedures - General procedure General procedure: Peripheral IV placement. She was difficult for IV and I personally placed a 20- gauge IV in the right antecubital fossa using real-time ultrasound guidance after ChloraPrep which flushed and andrew well. PD Medical Decision Making - ED course ED course: 72-year-old woman presents fairly acutely after stroke syndrome. She is not a candidate for tPA due to active DOAC use. She went directly down for CT which was negative for bleed but could not initially get angiography done as EMS had not placed and IV and the nurses had difficulty as well. She went down for CTA, but I brought her back with a creatinine of 9. I did want to discuss with her analytical chemistry teacher and he was paged. Per the she is oliguric but not completely anuric. I spoke with Dr. Gonzalez, her analytical chemistry teacher at [facility] who initially did not want to give contrast but then after more discussion decided to go ahead and have us do the CTAs. Due to short staffing and issues with the CT scanner there was a delay to the CTA and care to Dr. Mock at shift change pending CT angiography. Departure - Departure Clinical Impression: Cerebrovascular accident (CVA), Adequate anticoagulation on anticoagulant th erapy, Peritoneal dialysis status Condition: Serious
--- NOTE | 2023-04-28 19:20 | CT Report ---
PROCEDURE: Head W/O Stroke Protocol INDICATIONS: Neuro deficit, acute, stroke suspected TECHNIQUE: Noncontrast 4.5 mm thick angled axial sections acquired from the foramen magnum to the vertex, with c oronal reformats. For radiation dose reduction, the following was used: automated exposure control, adjustment of mA and/or kV according to patient size. COMPARISON: None. FINDINGS: Image quality: Excellent. CSF spaces: Basal cisterns are patent. No extra-axial fluid collections. Ventricles are normal in size and shape. Brain: No midline shift. No intracranial masses or hemorrhage. Ríos-white matter interface is norm al. Skull and face: Calvarium and visualized facial bones are intact, without suspicious lesions. Sinuses: Visualized sinuses and mastoids are clear. IMPRESSION: No acute intracranial pathology. Findings discussed with Dr. Diamond on 04/28/2023 at 7:18PM. This study fulfills neurological imaging criteria for inclusion or exclusion of acute stroke therapie s based on available published neurological imaging guidelines. Reviewed by: Keron Langford on 04/28/2023 7:18 PM PST Approved by: Keron Langford on 04/28/2023 7:18 PM PST Station ID: [id number]
[2023-04-28 19:59] LABS: BASOPHILS # (AUTO) 0.1 10^3/uL (0.0-0.1); BASOPHILS % (AUTO) 0.5 %; EOSINOPHILS # (AUTO) 0.3 10^3/uL (0.0-0.7); EOSINOPHILS % (AUTO) 3.1 %; HGB - HEMOGLOBIN 8.7 g/dL (12.0-16.0); LYMPHOCYTES # (AUTO) 1.8 10^3/uL (1.5-3.5); LYMPHOCYTES % (AUTO) 18.9 %; MEAN CORPUSCULAR HEMOGLOBIN 32.7 pg (27.0-31.0); MEAN PLATELET VOLUME 10.5 fL (7.9-10.8); MONOCYTES # (AUTO) 0.8 10^3/uL (0.0-1.0); MONOCYTES % (AUTO) 8.4 %; NEUTROPHILS # (AUTO) 6.5 10^3/uL (1.5-6.6); NEUTROPHILS % (AUTO) 67.9 %; NRBC ABSOLUTE COUNT (AUTO) 0.03 x10^3/uL; NUCLEATED RED BLOOD CELLS AUTO 0.3 /100WBC; PLT - PLATELET COUNT 240 10^3/uL (130-450); RED BLOOD COUNT 2.66 10^6/uL (4.20-5.40); RED CELL DISTRIBUTION WIDTH 16.8 % (12.0-15.0); WHITE BLOOD COUNT 9.5 x10^3/uL (4.8-10.8)
[2023-04-28 20:13] LABS: ALBUMIN 3.3 g/dL (3.2-5.5)
[2023-04-28 20:18] LABS: BILIRUBIN,TOTAL 0.3 mg/dL (0.2-1.0); CALCIUM 10.1 mg/dL (8.5-10.3); CREATININE 9.2 mg/dL (0.6-1.3); POTASSIUM 3.9 mmol/L (3.5-4.5); TOTAL PROTEIN 6.6 g/dL (6.4-8.9)
[2023-04-28 21:03] VITALS: O2SAT 100
--- NOTE | 2023-04-29 00:10 | ED Physician Documentation ---
ED Addendum - Addendum Addendum: 04/29/23 Patient care assumed at shift change from Dr. Encarnacion. Patient is awaiting CT angio of her head and neck. Unfortunately it seems that patient's IV infiltrated while in CT and she did receive a contrast load but it was not intravascular and the study was not adequately performed. Patient was brought back to the emergency department. I did speak with her coil shaper again at [id number], Dr. Gonzalez. He states that while not ideal to give more contrast we have to do what we have to do in order to evaluate her stroke symptoms so again gives a go ahead. 04/29/23 04:09 There was a significant delay in getting patient to back to CT scanner for the CT angio which was partly related to needing to come back to the ER for another IV as well as significant delays with CTs during the shift and subsequently getting a report from radiology. CT angio was reviewed and demonstrates a small amount of thrombus suspected within the left middle cerebral artery M2 segment at the proximal aspect of the left sylvian fissure. There is no high-grade stenosis in the neck. 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 We will request teleneurology consultation. 04/29/23 04:15 Discussed with teleneurology, Dr. Valdovinos who will evaluate the patient. She states that this could be an area amenable to intervention. Dr. Valdovinos will help arrange for transfer to [facility]. I also spoke with Dr. Colin in the [facility] emergency department who graciously excepted the patient in transfer. Departure - Departure Disposition: 02 Transfer Acute Care [facility]osp Clinical Impression: Cerebrovascular accident (CVA), Adequate anticoagulation on anticoagulant therapy, Peritoneal dialysis status, Thrombosis of left middle cerebral artery Condition: Serious Forms: PCP List Discharge Date/Time: 04/29/23 05:47
--- NOTE | 2023-04-29 00:38 | CT Report ---
PROCEDURE: CT Angio Head/Neck INDICATIONS: CVA TECHNIQUE: After the administration of intravenous contrast, 1 mm thick sections acquired from the aortic arch t hrough the [place]. 3-dimensional nlcawdi-alxlfyzse-iewoetcxud (MIP) and/or volume renderin g reformats were acquired of the central intracranial vasculature and neck separately. For radiation dose reduction, the following was used: automated exposure control, adjustment of mA and/or kV acco rding to patient size. No contrast is visible on the exam as contrast infiltrated at the injection si te. COMPARISON: CT head 04/28/2023 FINDINGS: Image quality: Diagnostic. HEAD CT: CSF Spaces: Basal cisterns are patent. No extra-axial fluid collections. Ventricles are normal in size and shape. Brain: The brain is within normal limits for age and scanning technique. Skull and face: Calvarium and visualized facial bones appear intact, without suspicious lesions. Sinuses: Visualized sinuses and mastoids are clear. HEAD CT ANGIOGRAPHY: Nonopacification of the anterior or posterior circulation. Vascular calcifications are present. NECK CT ANGIOGRAPHY: Nonopacification of the neck vasculature. Vascular calcifications are present. Soft tissues: Visualized neck soft tissues demonstrate no suspicious abnormalities. Bones: No suspicious bony lesions. Visualized cervical spine appears normally aligned. IMPRESSION: Markedly limited exam secondary to contrast infiltration. Intracranial Neck Vasculature cannot be tika luated. Recommend repeat study when feasible for further evaluation. The estimate of stenosis included in the report of the imaging study was calculated using the NASCET method Reviewed by: Hina Ortega MD on 04/29/2023 12:36 AM PST Approved by: Hina Ortega MD on 04/29/2023 12:36 AM PST Station ID: [id number]
[2023-04-29] MEDS ORDERED: iohexoL-300 100 ML VIAL IVP ONE (05:15)
[2023-04-29 05:50] VITALS: BP 140/91
--- NOTE | 2023-04-29 10:26 | CT Report ---
PROCEDURE: CT angiogram head and neck with contrast INDICATIONS: R sided weakness/word finding diff TECHNIQUE: Helical axial CT of the head and neck was obtained during the arterial phase of a intrave nous contrast injection utilizing an angiographic protocol. Multiplanar traditional and MIP reformat s were also obtained. COMPLIANCE STATEMENTS: Any estimate of proximal ICA stenosis was calculated using NASCET guidelines. Dose reduction techniques included either automated exposure control or adjustment of exposure loly eters. COMPARISON: None. FINDINGS: Image quality: Beam hardening artifact arising from the patient's shoulders limits assessment of the proximal vessels neck Cerebral CT Angiogram: Internal carotid arteries: Arising from the right supraclinoid ICA, there is an inferiorly directed a neurysm arising from the posterior wall measuring 9 mm dome to base, 9 mm in diameter, with 3 mm nec k. Mural calcification present, and the aneurysm is patent. Atherosclerotic vascular calcification no muriel in the cavernous segments of both internal carotid arteries without stenosis. Anterior cerebral arteries: Unremarkable. No significant stenosis. No occlusion. No aneurysm. Middle cerebral arteries: There is a focal occlusion of a left superior division M2 MCA branch vessel . There is immediate reconstitution of the vessel. The left MCA unremarkable. Posterior cerebral arteries: Unremarkable. No significant stenosis. No occlusion. No aneurysm. Basilar artery: Unremarkable. No significant stenosis. No occlusion. No aneurysm. Vertebral arteries: Unremarkable as visualized. Dural venous sinuses: Unremarkable given phase of enhancement. Other: Arterial phase appearance of the brain parenchyma is unremarkable. Neck CT Angiogram: Internal carotid arteries: Mild atherosclerotic plaque in both proximal ICA present without stenosis utilizing NASCET criteria Common carotid arteries: Unremarkable. No significant stenosis. No dissection or occlusion. External carotid arteries: Unremarkable. No occlusion. Vertebral arteries: Unremarkable. No significant stenosis. No dissection or occlusion. Aortic Arch and Mediastinum: Partially visualized aortic arch unremarkable without evidence of aneury sm. Origins of the great vessels unremarkable. Other: Arterial phase soft tissues of the neck are unremarkable. IMPRESSION: 1. 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 2. 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 Advise neurosurgical/endovascular consultation Note: This final report is concordant with the preliminary after-hours interpretation provided by [employer], [employer] Reviewed by: Jean Carlos Pate MD on 04/29/2023 9:25 AM [place] Approved by: Jean Carlos Pate MD on 04/29/2023 9:25 AM [facility] Station ID: [id number]
== END 2023-04-29 05:47 | disposition short-term general hospital (02) ==
LOC: EDUNIT# → ED 18:46
DX: I63.39 Cerebral infarction due to thrombosis of other cerebral artery (principal); R29.708 NIHSS score 8; R47.02 Dysphasia; G81.91 Hemiplegia, unspecified affecting right dominant side; R79.89 Other specified abnormal findings of blood chemistry; N28.9 Disorder of kidney and ureter, unspecified; Z99.2 Dependence on renal dialysis; Z79.01 Long term (current) use of anticoagulants; I48.91 Unspecified atrial fibrillation
CPT/HCPCS: 36415; 36569; 70450; 70496; 70498; 80053; 83690; 85025; 85610; 93005; 99285; Q9967

== ENCOUNTER → 2023-07-27 | Outpatient (CLI) | payer MEDICARE, OTHER | LOC: LAB.N 08:00 | PROVIDERS: ATTEND Physician Assistant | DX: I63.40 Cerebral infarction due to embolism of unspecified cerebral artery (principal); Z79.01 Long term (current) use of anticoagulants ==

== ENCOUNTER 2023-09-08 11:16 | Outpatient (CLI) | payer MEDICARE, OTHER ==
--- NOTE | 2023-09-09 10:11 | Mammography Report ---
UNILATERAL LEFT DIGITAL SCREENING MAMMOGRAM 3D/2D: 09/08/2023 CLINICAL: Routine screening. Personal history of right breast cancer. Comparison is made to exams dated: 09/22/2022 mammogram, 05/22/2021 mammogram - [facility], and 10/07/2016 mammogram - [facility]. The left breast is heterogeneously dense, which may obscure small masses (category c / 51-75% glandul ar tissue). There are benign calcifications in the left breast. There also are benign vascular calcifications in the left breast. No significant masses, calcifications, or other findings are seen in the breast. There has been no significant interval change. IMPRESSION: BENIGN There is no mammographic evidence of malignancy. A 1 year screening mammogram is recommended. This exam was interpreted at Station ID: [id number]. NOTE: For mammograms, a report in lay terms will be sent to the patient. Approximately 15% of breast malignancies will not be visualized mammographically. In the management of a palpable breast mass, a negative mammogram must not discourage biopsy of a clinically suspicious lesion. Electronically Signed By: Valentin Boswell M.D. ar/:09/08/2023 14:45:00 Entry: ka - 09/09/2023 09:51:29 letter sent: No_Letter ACR BI-RADS Category 2: Benign Finding(s) 3342F PARENCHYMAL PATTERN: (D) - The breast(s) demonstrate(s) heterogeneously dense fibroglandular ld kruse. BI-RADS CATEGORY: (2) - 2 RECOMMENDATION: (ANNUAL) - Recommend routine annual screening mammography. [id number] 1 year screening LATERALITY: (B)
== END 2023-09-08 11:17 | disposition home or self-care (01) ==
LOC: DI.N 11:16
DX: Z12.31 Encounter for screening mammogram for malignant neoplasm of breast (principal); R92.332 Mammographic heterogeneous density, left breast; Z85.3 Personal history of malignant neoplasm of breast

== ENCOUNTER 2023-09-08 11:23 | Outpatient (CLI) | payer MEDICARE, OTHER | END 2023-09-08 11:24 | disposition home or self-care (01) | LOC: LAB.N 11:23 | PROVIDERS: ATTEND Physician Assistant | DX: I63.40 Cerebral infarction due to embolism of unspecified cerebral artery (principal); Z79.01 Long term (current) use of anticoagulants | CPT/HCPCS: 36416; 85610 ==

== ENCOUNTER 2023-09-16 08:00 | Outpatient (CLI) | payer MEDICARE, OTHER | END 2023-09-16 08:01 | disposition home or self-care (01) | LOC: LAB.N 08:00 | PROVIDERS: ATTEND Physician Assistant | DX: I63.40 Cerebral infarction due to embolism of unspecified cerebral artery (principal); Z79.01 Long term (current) use of anticoagulants ==

== ENCOUNTER 2023-10-14 08:00 | Outpatient (CLI) | payer MEDICARE, OTHER | END 2023-10-14 08:01 | disposition home or self-care (01) | LOC: LAB.N 08:00 | PROVIDERS: ATTEND Specialist | DX: I63.40 Cerebral infarction due to embolism of unspecified cerebral artery (principal); Z79.01 Long term (current) use of anticoagulants ==

== ENCOUNTER 2023-11-11 18:11 | Outpatient (CLI) | payer MEDICARE, OTHER | END 2023-11-11 23:59 | disposition EMS.NT | LOC: EMS 18:11 | DX: Z03.89 Encounter for observation for other suspected diseases and conditions ruled out (principal) ==

== ENCOUNTER 2024-01-13 08:00 | Outpatient (CLI) | payer MEDICARE, OTHER | END 2024-01-13 23:59 | disposition home or self-care (01) | LOC: LAB.WCP 08:00 | PROVIDERS: ATTEND Physician Assistant | DX: I63.40 Cerebral infarction due to embolism of unspecified cerebral artery (principal); Z79.01 Long term (current) use of anticoagulants ==

== ENCOUNTER 2024-02-29 08:00 | Outpatient (CLI) | payer MEDICARE, OTHER | END 2024-02-29 23:59 | disposition home or self-care (01) | LOC: LAB.N 08:00 | PROVIDERS: ATTEND Physician Assistant | DX: I63.40 Cerebral infarction due to embolism of unspecified cerebral artery (principal); Z79.01 Long term (current) use of anticoagulants ==